=== PATIENT | female | born 1960 | race Caucasian/White ===

== ENCOUNTER 2022-07-25 21:58 | Inpatient (IN) | payer OTHER ==
[2022-07-25] MEDS ORDERED: METOCLOPRAMIDE HCL INJECTION 10 MG/2 ML VIAL IVPB ONE (22:49)
[2022-07-25 23:38] LABS: URINE APPEARANCE TURBID; URINE BILIRUBIN NEGATIVE (NEGATIVE); URINE COLOR YELLOW; URINE GLUCOSE (UA) NEGATIVE (NEGATIVE); URINE KETONE NEGATIVE (NEGATIVE)
[2022-07-25 23:39] LABS: EPI CELLS 207.3 /uL (0-25.1); HYALINE CASTS 726.29 /uL (0-3.1); PH,URINE 6.5 (5.0-8.0); URINE BACTERIA 34726.9 /uL (0-1359); URINE LEUK ESTERASE 4+ (NEGATIVE); URINE NITRITE NEGATIVE (NEGATIVE); URINE PROTEIN 100 (NEGATIVE); URINE RBC 72.4 /uL (0-23.9); URINE UROBILINOGEN 0.2 mg/dL (0.2-1.0); URINE WBC 9177.6 /uL (0-25.8)
[2022-07-25] MEDS ORDERED: LACTATED RINGERS SOLUTION 1000 ML INFUS.BAG IV ONE (23:47)
[2022-07-25] MEDS ORDERED: VANCOMYCIN 2,000 MG in DEXTROSE 5%-WATER - 250 ML IVPB ONE (23:48)
[2022-07-25] MEDS ORDERED: MEROPENEM 1 GM in DEXTROSE 5%-WATER 100 ML IVPB ONE (23:51)
[2022-07-25] MEDS ORDERED: AZTREONAM 1 GM in DEXTROSE 5%-WATER - 50 ML IVPB ONE (23:52)
[2022-07-26 00:19] LABS: BASO % 0.6 % (0-2.0); HEMATOCRIT 25.8 % (32.4-45.2); HEMOGLOBIN 8.5 GM/dL (10.7-15.3); LYMPH % 13.2 % (8-40); MCHC 32.8 g/dl (32.0-36.0); MEAN CELL VOLUME 100.5 fl (80-96); MEAN PLT VOLUME 7.9 fl (7.5-11.1); MONO % 8.9 % (3.8-10.2); NEUT % 77.3 % (42.8-82.8); PLATELET COUNT 189 10^3/uL (134-434); RBC 2.57 M/mm3 (3.60-5.2); RDW 15.4 % (11.6-15.6)
[2022-07-26 00:24] LABS: INR 1.33 (0.83-1.09); PROTHROMBIN TIME (PATIENT) 15.3 SEC (9.7-13.0)
[2022-07-26 00:26] LABS: ACTIVATED PTT 30.6 SECONDS (25.2-36.5)
[2022-07-26 00:40] LABS: ALBUMIN 1.9 g/dl (3.4-5.0); BLOOD UREA NITROGEN 32.3 mg/dL (7-18); CALCIUM 7.4 mg/dL (8.5-10.1); MAGNESIUM 2.2 mg/dL (1.8-2.4)
[2022-07-26 00:43] LABS: CREATININE 1.1 mg/dL (0.55-1.3)
[2022-07-26 00:44] LABS: BILIRUBIN,TOTAL 0.3 mg/dL (0.2-1); TOT PROT 4.5 g/dl (6.4-8.2)
[2022-07-26 00:48] LABS: N-TERMINAL BNP 6144.1 pg/ml (5-125)
[2022-07-26] MEDS ORDERED: METOCLOPRAMIDE HCL INJECTION 10 MG/2 ML VIAL ONE (01:55)
[2022-07-26] MEDS ORDERED: VANCOMYCIN/WATER 2 GRAMS 2,000 MG/400 ML PIGGYBACK IVPB ONE (02:15)
[2022-07-26] MEDS ORDERED: ACETAMINOPHEN 1000 MG/100 ML BAG IVPB ONE (03:47)
[2022-07-26] MEDS ORDERED: ACETAMINOPHEN INJECTION 100 ML IVPB ONE (03:51)
[2022-07-26] MEDS ORDERED: LACTATED RINGERS SOLUTION 1,000 ML IV SCH (04:15)
[2022-07-26 06:37] LABS: BASO % 0.5 % (0-2.0); HEMATOCRIT 23.7 % (32.4-45.2); HEMOGLOBIN 7.7 GM/dL (10.7-15.3); LYMPH % 4.4 % (8-40); MCHC 32.4 g/dl (32.0-36.0); MEAN CELL VOLUME 98.8 fl (80-96); MEAN PLT VOLUME 7.5 fl (7.5-11.1); NEUT % 86.1 % (42.8-82.8); PLATELET COUNT 158 10^3/uL (134-434); RDW 14.7 % (11.6-15.6); WHITE BLOOD COUNT 4.1 K/mm3 (4.0-10.0)
[2022-07-26 06:56] LABS: CHLORIDE 110 mmol/L (98-107); SODIUM 140 mmol/L (136-145)
[2022-07-26 07:01] LABS: ALBUMIN 1.8 g/dl (3.4-5.0); ANION GAP 8 MMOL/L (8-16); BLOOD UREA NITROGEN 30.3 mg/dL (7-18); CO2 21 mmol/L (21-32); GLUCOSE,RANDOM 84 mg/dL (74-106)
[2022-07-26 07:04] LABS: CREATININE 0.8 mg/dL (0.55-1.3); PHOSPHOROUS 3.6 mg/dL (2.5-4.9); SGOT/AST 40 U/L (15-37); SGPT/ALT 34 U/L (13-61)
[2022-07-26 07:07] LABS: ALK PHOS 72 U/L (45-117); BILIRUBIN,TOTAL 0.3 mg/dL (0.2-1); TOT PROT 4.2 g/dl (6.4-8.2)
[2022-07-26 07:19] LABS: CALCIUM 6.9 mg/dL (8.5-10.1)
[2022-07-26] MEDS ORDERED: LEVOTHYROXINE NA 50 MCG TABLET (FP) ONE (09:51)
[2022-07-26] MEDS: POLYETHYLENE GLYCOL (HEALTHYLAX) 3350 17 GM PACKET PO SCH ×3 (09:53→23:57)
[2022-07-26] MEDS: LEVOTHYROXINE NA 50 MCG TABLET (FP) PO SCH (09:57)
[2022-07-26] MEDS ORDERED: ACETAMINOPHEN 1000 MG/100 ML BAG IVPB PRN (10:00)
[2022-07-26] MEDS ORDERED: DIVALPROEX SODIUM 500 MG TABLET E.C. PO SCH (10:00)
[2022-07-26 10:21] LABS: CHOLESTEROL 64 mg/dL (50-200); TRIGLYCERIDES 74 mg/dL (0-150)
[2022-07-26 10:22] LABS: LDL CHOLESTEROL (ONLY SJRH) 32 mg/dL (5-100)
[2022-07-26 10:23] LABS: HDL CHOLESTEROL 24 mg/dL (40-60)
[2022-07-26] MEDS: VALPROATE SODIUM 250 MG/5 ML UNIT DOSE CUP PO SCH ×2 (11:00→23:56)
[2022-07-26] MEDS: APIXABAN 5 MG TABLET PO SCH ×2 (11:00→23:56)
[2022-07-26] MEDS ORDERED: DIVALPROEX SODIUM 500 MG TABLET E.C. ONE (11:02)
[2022-07-26] MEDS ORDERED: APIXABAN 5 MG TABLET ONE (11:02)
[2022-07-26] MEDS ORDERED: POLYETHYLENE GLYCOL (HEALTHYLAX) 3350 17 GM PACKET ONE (15:09)
[2022-07-26] MEDS: FLUTICASONE/SALMETEROL 100 MCG/50 MCG DISKUS IH SCH (15:15)
[2022-07-26] MEDS ORDERED: VANCOMYCIN/WATER 1,250 MG/250 ML BAG IVPB ONE (22:44)
[2022-07-27] MEDS: FLUTICASONE/SALMETEROL 100 MCG/50 MCG DISKUS IH SCH ×3 (00:06→21:49)
[2022-07-27] MEDS: LEVOTHYROXINE NA 50 MCG TABLET (FP) PO SCH (06:44)
[2022-07-27] MEDS: POLYETHYLENE GLYCOL (HEALTHYLAX) 3350 17 GM PACKET PO SCH ×3 (06:44→21:49)
[2022-07-27 09:43] LABS: HEMATOCRIT 25.5 % (32.4-45.2); HEMOGLOBIN 8.3 GM/dL (10.7-15.3); MCH 32.3 pg (25.7-33.7); MCHC 32.6 g/dl (32.0-36.0); MEAN CELL VOLUME 99.3 fl (80-96); MEAN PLT VOLUME 8.1 fl (7.5-11.1); PLATELET COUNT 143 10^3/uL (134-434); RBC 2.57 M/mm3 (3.60-5.2); RDW 14.7 % (11.6-15.6); WHITE BLOOD COUNT 2.1 K/mm3 (4.0-10.0)
[2022-07-27] MEDS ORDERED: FLU VACC QS2022-23(6MOS UP)/PF 60 MCG/0.5 ML SYRINGE IM ONE (10:00)
[2022-07-27 10:01] LABS: ALBUMIN 1.9 g/dl (3.4-5.0)
[2022-07-27 10:02] LABS: BLOOD UREA NITROGEN 24.2 mg/dL (7-18)
[2022-07-27 10:04] LABS: CREATININE 0.7 mg/dL (0.55-1.3)
[2022-07-27 10:05] LABS: BILIRUBIN,TOTAL 0.2 mg/dL (0.2-1)
[2022-07-27 10:06] LABS: CALCIUM 7.7 mg/dL (8.5-10.1); TOT PROT 4.4 g/dl (6.4-8.2)
[2022-07-27] MEDS: VALPROATE SODIUM 250 MG/5 ML UNIT DOSE CUP PO SCH ×2 (10:15→21:48)
[2022-07-27] MEDS: APIXABAN 5 MG TABLET PO SCH ×2 (10:15→21:48)
[2022-07-27] MEDS ORDERED: IRON SUCROSE INJECTION 200 MG in SODIUM CHLORIDE 90 ML IVPB ONE ×2 (11:19→12:00)
[2022-07-27] MEDS: ACETAMINOPHEN 1000 MG/100 ML BAG IVPB PRN ×2 (11:52→18:08)
[2022-07-27] MEDS ORDERED: MEROPENEM 1 GM in DEXTROSE 5%-WATER 100 ML IVPB SCH (14:00)
[2022-07-27] MEDS ORDERED: POTASSIUM CHLORIDE 10 MEQ in DEXTROSE 5%-0.45% SALINE 995 ML IV SCH (16:30)
[2022-07-27] MEDS ORDERED: D5-1/2NS+10 MEQ KCL - 10 MEQ/1,000 ML INFUS.BAG IV SCH (16:45)
[2022-07-28 06:22] LABS: HEMATOCRIT 22.9 % (32.4-45.2); HEMOGLOBIN 7.3 GM/dL (10.7-15.3); MCH 31.7 pg (25.7-33.7); MCHC 31.9 g/dl (32.0-36.0); MEAN CELL VOLUME 99.4 fl (80-96); MEAN PLT VOLUME 8.3 fl (7.5-11.1); PLATELET COUNT 140 10^3/uL (134-434); RDW 14.6 % (11.6-15.6)
[2022-07-28 06:29] LABS: WHITE BLOOD COUNT 1.7 K/mm3 (4.0-10.0)
[2022-07-28 06:41] LABS: ALBUMIN 1.7 g/dl (3.4-5.0); CALCIUM 7.2 mg/dL (8.5-10.1)
[2022-07-28 06:44] LABS: CREATININE 0.6 mg/dL (0.55-1.3)
[2022-07-28 06:46] LABS: BILIRUBIN,TOTAL 0.2 mg/dL (0.2-1)
[2022-07-28] MEDS: LEVOTHYROXINE NA 50 MCG TABLET (FP) PO SCH (07:00)
[2022-07-28] MEDS: VANCOMYCIN/WATER 1250 MG 1,250 MG/250 ML BAG IVPB SCH ×2 (07:00→17:18)
[2022-07-28] MEDS: POLYETHYLENE GLYCOL (HEALTHYLAX) 3350 17 GM PACKET PO SCH ×3 (07:26→21:16)
[2022-07-28] MEDS: DEXTROSE 5%-WATER - 1,000 ML IV SCH (09:59)
[2022-07-28] MEDS: VALPROATE SODIUM 250 MG/5 ML UNIT DOSE CUP PO SCH ×2 (10:50→21:16)
[2022-07-28] MEDS: FLUTICASONE/SALMETEROL 100 MCG/50 MCG DISKUS IH SCH ×2 (10:55→21:17)
[2022-07-28] MEDS: FUROSEMIDE 20 MG TABLET (FP) PO SCH (14:00)
[2022-07-28] MEDS ORDERED: PORTA CATH FLUSH 10 ML IVPUSH PRN (14:11)
[2022-07-28] MEDS ORDERED: guaiFENesin/D-M SUGAR-FREE/ACLHOL-FREE 5 ML UNIT DOSE PO PRN (14:32)
[2022-07-28] MEDS ORDERED: FUROSEMIDE 40 MG/4 ML INJECTABLE VIAL IVPUSH ONE (17:05)
[2022-07-28] MEDS: NYSTATIN 100,000 UNIT/GM TOPICAL CREAM 15 GM TUBE TP SCH (21:16)
[2022-07-29] MEDS: VANCOMYCIN/WATER 1250 MG 1,250 MG/250 ML BAG IVPB SCH ×2 (05:47→17:19)
[2022-07-29] MEDS: POLYETHYLENE GLYCOL (HEALTHYLAX) 3350 17 GM PACKET PO SCH ×3 (05:47→22:33)
[2022-07-29] MEDS: LEVOTHYROXINE NA 50 MCG TABLET (FP) PO SCH (06:41)
[2022-07-29 09:28] LABS: HEMATOCRIT 23.8 % (32.4-45.2); HEMOGLOBIN 7.8 GM/dL (10.7-15.3); MCH 32.4 pg (25.7-33.7); MCHC 32.6 g/dl (32.0-36.0); MEAN CELL VOLUME 99.3 fl (80-96); MEAN PLT VOLUME 7.7 fl (7.5-11.1); PLATELET COUNT 162 10^3/uL (134-434); RDW 14.6 % (11.6-15.6); WHITE BLOOD COUNT 2.7 K/mm3 (4.0-10.0)
[2022-07-29 10:00] LABS: CREATININE 0.6 mg/dL (0.55-1.3)
[2022-07-29 10:02] LABS: BILIRUBIN,TOTAL 0.2 mg/dL (0.2-1); TOT PROT 4.5 g/dl (6.4-8.2)
[2022-07-29] MEDS: VALPROATE SODIUM 250 MG/5 ML UNIT DOSE CUP PO SCH ×2 (11:03→22:33)
[2022-07-29] MEDS: APIXABAN 5 MG TABLET PO SCH ×2 (11:03→22:33)
[2022-07-29] MEDS: FLUTICASONE/SALMETEROL 100 MCG/50 MCG DISKUS IH SCH ×2 (11:04→22:34)
[2022-07-29] MEDS: NYSTATIN 100,000 UNIT/GM TOPICAL CREAM 15 GM TUBE TP SCH ×2 (11:04→22:40)
[2022-07-29] MEDS: DEXTROSE 5%-WATER - 1,000 ML IV SCH ×2 (11:04→15:30)
[2022-07-29] MEDS: FUROSEMIDE 20 MG TABLET (FP) PO SCH (11:04)
[2022-07-29] MEDS ORDERED: AMMONIUM LACTATE 12% LOTION 225 GM BOTTLE TP PRN (11:13)
[2022-07-29] MEDS: DIVALPROEX SODIUM 500 MG TABLET E.C. PO SCH (12:00)
[2022-07-29] MEDS ORDERED: NYSTATIN POWDER 100,000 UNITS/GM - 15 GM TOPICAL POWDER TP SCH (15:00)
[2022-07-29] MEDS: FUROSEMIDE 40 MG/4 ML INJECTABLE VIAL IVPUSH SCH (15:28)
[2022-07-30] MEDS: DEXTROSE 5%-WATER - 1,000 ML IV SCH ×4 (05:52→22:34)
[2022-07-30] MEDS: POLYETHYLENE GLYCOL (HEALTHYLAX) 3350 17 GM PACKET PO SCH ×3 (05:52→22:36)
[2022-07-30] MEDS: VANCOMYCIN/WATER 1250 MG 1,250 MG/250 ML BAG IVPB SCH (05:53)
[2022-07-30] MEDS: LEVOTHYROXINE NA 50 MCG TABLET (FP) PO SCH (06:35)
[2022-07-30 09:29] LABS: BASO % 0.5 % (0-2.0); EOS % 5.9 % (0-4.5); HEMATOCRIT 25.1 % (32.4-45.2); HEMOGLOBIN 8.2 GM/dL (10.7-15.3); LYMPH % 30.4 % (8-40); MCH 32.2 pg (25.7-33.7); MCHC 32.7 g/dl (32.0-36.0); MEAN CELL VOLUME 98.6 fl (80-96); MEAN PLT VOLUME 8.3 fl (7.5-11.1); MONO % 12.4 % (3.8-10.2); NEUT % 50.8 % (42.8-82.8); PLATELET COUNT 191 10^3/uL (134-434); RBC 2.55 M/mm3 (3.60-5.2); RDW 14.7 % (11.6-15.6); WHITE BLOOD COUNT 3.3 K/mm3 (4.0-10.0)
[2022-07-30 09:50] LABS: CALCIUM 8.1 mg/dL (8.5-10.1)
[2022-07-30 09:51] LABS: BLOOD UREA NITROGEN 17.2 mg/dL (7-18)
[2022-07-30 09:54] LABS: CREATININE 0.7 mg/dL (0.55-1.3)
[2022-07-30] MEDS: VALPROATE SODIUM 250 MG/5 ML UNIT DOSE CUP PO SCH (10:14)
[2022-07-30] MEDS: APIXABAN 5 MG TABLET PO SCH ×2 (10:14→22:36)
[2022-07-30] MEDS: FUROSEMIDE 40 MG/4 ML INJECTABLE VIAL IVPUSH SCH (10:15)
[2022-07-30] MEDS: NYSTATIN 100,000 UNIT/GM TOPICAL CREAM 15 GM TUBE TP SCH ×2 (10:19→22:37)
[2022-07-30] MEDS: NYSTATIN POWDER 100,000 UNITS/GM - 15 GM TOPICAL POWDER TP SCH (10:19)
[2022-07-30] MEDS: FLUTICASONE/SALMETEROL 100 MCG/50 MCG DISKUS IH SCH ×2 (10:20→22:37)
[2022-07-30] MEDS ORDERED: SODIUM ZIRCONIUM CYCLOSILICATE (LOKELMA) 5 GM PACKET PO SCH (13:15)
[2022-07-30] MEDS ORDERED: IRON SUCROSE INJECTION 200 MG in SODIUM CHLORIDE 90 ML IVPB ONE (13:15)
[2022-07-30 14:52] VITALS: BMI 32.8
[2022-07-30] MEDS: VANCOMYCIN/WATER FOR INJ (PEG) 1,000 MG/200 ML BAG IVPB SCH (18:04)
[2022-07-30] MEDS: AMINO ACIDS/PROTEIN HYDROLYS 30 ML LIQUID.PKT PO SCH (18:05)
[2022-07-30] MEDS ORDERED: PRAMIPEXOLE DIHYDROCHLORIDE 0.25 MG TABLET PO SCH (22:00)
[2022-07-30] MEDS: DIVALPROEX NA *ER* EXTEND REL 500 MG TABLET.SA (FP) PO SCH (22:36)
[2022-07-31] MEDS ORDERED: PROMETHAZINE HCL 25 MG/1 ML VIAL IVPB ONE (02:05)
[2022-07-31] MEDS: VANCOMYCIN/WATER FOR INJ (PEG) 1,000 MG/200 ML BAG IVPB SCH ×2 (03:21→15:56)
[2022-07-31] MEDS: POLYETHYLENE GLYCOL (HEALTHYLAX) 3350 17 GM PACKET PO SCH ×2 (05:11→14:43)
[2022-07-31] MEDS: LEVOTHYROXINE NA 50 MCG TABLET (FP) PO SCH (06:52)
[2022-07-31] MEDS ORDERED: FERROUS SO4 325 MG TABLET (FP) PO SCH (08:00)
[2022-07-31] MEDS ORDERED: MULTIVIT-MINERALS ORAL LIQUID PO SCH (10:00)
[2022-07-31] MEDS: AMINO ACIDS/PROTEIN HYDROLYS 30 ML LIQUID.PKT PO SCH ×2 (10:26→17:19)
[2022-07-31] MEDS: DIVALPROEX NA *ER* EXTEND REL 500 MG TABLET.SA (FP) PO SCH (10:26)
[2022-07-31] MEDS: APIXABAN 5 MG TABLET PO SCH (10:28)
[2022-07-31] MEDS: FUROSEMIDE 40 MG/4 ML INJECTABLE VIAL IVPUSH SCH (10:28)
[2022-07-31] MEDS: DEXTROSE 5%-WATER - 1,000 ML IV SCH ×2 (10:30→14:34)
[2022-07-31] MEDS: FLUTICASONE/SALMETEROL 100 MCG/50 MCG DISKUS IH SCH (10:32)
[2022-07-31] MEDS: NYSTATIN 100,000 UNIT/GM TOPICAL CREAM 15 GM TUBE TP SCH (10:32)
[2022-07-31] MEDS: NYSTATIN POWDER 100,000 UNITS/GM - 15 GM TOPICAL POWDER TP SCH (10:32)
[2022-07-31 20:39] VITALS: BP 110/65; PULSE 79; RESP 18; TEMP 98.1
[2022-08-01] MEDS ORDERED: FUROSEMIDE 40 MG TABLET (FP) PO SCH (10:00)
== END 2022-07-31 19:15 | DRG 314 ==
LOC: JER 21:58 → JERBED 07-26 03:09 → J7W 07-26 21:13
PROVIDERS: ADMIT Internal Medicine; ATTEND Family Medicine
DX: T82.7XXA Infection and inflammatory reaction due to other cardiac and vascular devices, implants and grafts, initial encounter (principal); A41.89 Other specified sepsis; G93.41 Metabolic encephalopathy; G93.7 Reye's syndrome; N39.0 Urinary tract infection, site not specified; E87.0 Hyperosmolality and hypernatremia; K56.609 Unspecified intestinal obstruction, unspecified as to partial versus complete obstruction; I69.351 Hemiplegia and hemiparesis following cerebral infarction affecting right dominant side; D61.818 Other pancytopenia; E46 Unspecified protein-calorie malnutrition; J98.11 Atelectasis; I50.32 Chronic diastolic (congestive) heart failure; E78.5 Hyperlipidemia, unspecified; I11.0 Hypertensive heart disease with heart failure; G25.81 Restless legs syndrome; J44.9 Chronic obstructive pulmonary disease, unspecified; K21.9 Gastro-esophageal reflux disease without esophagitis; D64.9 Anemia, unspecified; K58.9 Irritable bowel syndrome, unspecified; D50.9 Iron deficiency anemia, unspecified; E66.9 Obesity, unspecified; Z68.32 Body mass index [BMI] 32.0-32.9, adult; E16.2 Hypoglycemia, unspecified; N28.1 Cyst of kidney, acquired; K44.9 Diaphragmatic hernia without obstruction or gangrene; R50.81 Fever presenting with conditions classified elsewhere; B96.1 Klebsiella pneumoniae [K. pneumoniae] as the cause of diseases classified elsewhere; G40.909 Epilepsy, unspecified, not intractable, without status epilepticus; E87.5 Hyperkalemia; L85.3 Xerosis cutis; L84 Corns and callosities; D72.829 Elevated white blood cell count, unspecified; I25.10 Atherosclerotic heart disease of native coronary artery without angina pectoris; Z88.0 Allergy status to penicillin; R04.0 Epistaxis; G43.909 Migraine, unspecified, not intractable, without status migrainosus; Z85.42 Personal history of malignant neoplasm of other parts of uterus; Z85.43 Personal history of malignant neoplasm of ovary; Z86.718 Personal history of other venous thrombosis and embolism; Z86.711 Personal history of pulmonary embolism
CPT/HCPCS: 0241U-QW; 36415; 70450-TC; 71045-TC-FY; 71250-TC; 74176-TC; 76775-TC; 80048; 80053; 80061; 80164; 81003; 82272; 82550; 82607; 82746; 82962; 83540; 83550; 83605; 83735; 83880; 84100; 84443; 84484; 85025; 85027; 85610; 85730; 86850; 86900; 86901; 87040; 87086; 87186; 93005; 93010; 93306-TC; 93970-TC; 93971; 97116-GP; 97161-GP; 99285-25; C9803-CS; G0480; J1756; U0003; U0005

== ENCOUNTER 2022-09-05 17:17 | Inpatient (IN) | payer OTHER ==
[2022-09-05 17:54] VITALS: BMI 27.1
[2022-09-05 18:52] LABS: VENOUS BASE EXCESS 0.2 mmol/L (-2-2); VENOUS O2 SATURATION 42.1 % (70-80); VENOUS PCO2 54.3 mmHg (38-52); VENOUS PH 7.315 (7.310-7.410)
[2022-09-05 18:57] LABS: BASO % 0.8 % (0-2.0); EOS % 2.6 % (0-4.5); HEMATOCRIT 32.4 % (32.4-45.2); HEMOGLOBIN 10.4 GM/dL (10.7-15.3); LYMPH % 32.9 % (8-40); MCH 32.2 pg (25.7-33.7); MCHC 32.3 g/dl (32.0-36.0); MEAN CELL VOLUME 99.8 fl (80-96); MEAN PLT VOLUME 8.7 fl (7.5-11.1); MONO % 11.6 % (3.8-10.2); NEUT % 52.1 % (42.8-82.8); PLATELET COUNT 106 10^3/uL (134-434); RBC 3.24 M/mm3 (3.60-5.2); RDW 14.9 % (11.6-15.6); WHITE BLOOD COUNT 4.2 K/mm3 (4.0-10.0)
[2022-09-05 19:17] LABS: EPI CELLS 1 /uL (0-25.1); HYALINE CASTS 1 /uL (0-3.1); PH,URINE 6.5 (5.0-8.0); URINE APPEARANCE CLOUDY; URINE BACTERIA 1152 /uL (0-1359); URINE BILIRUBIN NEGATIVE (NEGATIVE); URINE COLOR YELLOW; URINE GLUCOSE (UA) NEGATIVE (NEGATIVE); URINE KETONE NEGATIVE (NEGATIVE); URINE LEUK ESTERASE 3+ (NEGATIVE); URINE NITRITE NEGATIVE (NEGATIVE); URINE PROTEIN TRACE (NEGATIVE); URINE RBC 127 /uL (0-23.9); URINE UROBILINOGEN 0.2 mg/dL (0.2-1.0); URINE WBC 1906 /uL (0-25.8)
[2022-09-05 19:30] LABS: CHLORIDE 111 mmol/L (98-107); SODIUM 142 mmol/L (136-145)
[2022-09-05 19:31] LABS: INR 1.24 (0.83-1.09); PROTHROMBIN TIME (PATIENT) 14.3 SEC (9.7-13.0)
[2022-09-05 19:33] LABS: ACTIVATED PTT 30.9 SECONDS (25.2-36.5); ALBUMIN 2.7 g/dl (3.4-5.0); ANION GAP 4 MMOL/L (8-16); CALCIUM 8.2 mg/dL (8.5-10.1); CO2 27 mmol/L (21-32); GLUCOSE,RANDOM 81 mg/dL (74-106)
[2022-09-05 19:36] LABS: SGOT/AST 10 U/L (15-37); SGPT/ALT 11 U/L (13-61)
[2022-09-05 19:38] LABS: BILIRUBIN,TOTAL 0.1 mg/dL (0.2-1); TOT PROT 5.6 g/dl (6.4-8.2)
[2022-09-05 19:39] LABS: ALK PHOS 72 U/L (45-117)
[2022-09-05] MEDS ORDERED: VALPROATE SODIUM 500 MG/5 ML VIAL IVPB ONE (20:28)
[2022-09-05] MEDS ORDERED: VALPROATE SODIUM 500 MG/5 ML VIAL ONE (20:35)
[2022-09-05 20:52] LABS: EPI CELLS 35 /uL (0-25.1); HYALINE CASTS 1 /uL (0-3.1); URINE APPEARANCE CLEAR; URINE BACTERIA 63 /uL (0-1359); URINE BILIRUBIN NEGATIVE (NEGATIVE); URINE COLOR RED; URINE GLUCOSE (UA) NEGATIVE (NEGATIVE); URINE KETONE NEGATIVE (NEGATIVE); URINE LEUK ESTERASE 2+ (NEGATIVE); URINE NITRITE NEGATIVE (NEGATIVE); URINE PROTEIN 3+ (NEGATIVE); URINE RBC 2177 /uL (0-23.9); URINE UROBILINOGEN 0.2 mg/dL (0.2-1.0); URINE WBC 402 /uL (0-25.8)
[2022-09-06] MEDS ORDERED: LEVOTHYROXINE NA 50 MCG TABLET (FP) ONE (06:46)
[2022-09-06] MEDS: LEVOTHYROXINE NA 50 MCG TABLET (FP) PO SCH (06:46)
[2022-09-06 09:23] LABS: BASO % 0.7 % (0-2.0); EOS % 4.2 % (0-4.5); HEMATOCRIT 32.5 % (32.4-45.2); HEMOGLOBIN 10.6 GM/dL (10.7-15.3); LYMPH % 31.4 % (8-40); MCH 32.4 pg (25.7-33.7); MCHC 32.6 g/dl (32.0-36.0); MEAN CELL VOLUME 99.6 fl (80-96); MONO % 14.2 % (3.8-10.2); NEUT % 49.5 % (42.8-82.8); PLATELET COUNT 93 10^3/uL (134-434); RBC 3.26 M/mm3 (3.60-5.2); RDW 14.5 % (11.6-15.6); WHITE BLOOD COUNT 3.6 K/mm3 (4.0-10.0)
[2022-09-06 09:36] LABS: ALBUMIN 2.5 g/dl (3.4-5.0); BILIRUBIN,TOTAL 0.2 mg/dL (0.2-1); BLOOD UREA NITROGEN 29.3 mg/dL (7-18); CALCIUM 8.5 mg/dL (8.5-10.1); CREATININE 0.8 mg/dL (0.55-1.3); TOT PROT 5.3 g/dl (6.4-8.2)
[2022-09-06] MEDS ORDERED: GABAPENTIN 100 MG CAPSULE PO SCH (10:00)
[2022-09-06] MEDS ORDERED: VALPROATE SODIUM 250 MG/5 ML UNIT DOSE CUP PO SCH (10:00)
[2022-09-06] MEDS ORDERED: APIXABAN 5 MG TABLET ONE (10:25)
[2022-09-06] MEDS: FLUTICASONE/SALMETEROL 100 MCG/50 MCG DISKUS IH SCH (13:31)
[2022-09-06] MEDS: APIXABAN 5 MG TABLET PO SCH (13:32)
[2022-09-06] MEDS: DIVALPROEX SODIUM 500 MG TABLET E.C. PO SCH (14:48)
[2022-09-07] MEDS ORDERED: APIXABAN 5 MG TABLET ONE ×2 (00:59→10:29)
[2022-09-07] MEDS: APIXABAN 5 MG TABLET PO SCH ×2 (01:23→10:36)
[2022-09-07] MEDS: FLUTICASONE/SALMETEROL 100 MCG/50 MCG DISKUS IH SCH ×2 (01:23→10:35)
[2022-09-07 08:47] LABS: BASO % 0.8 % (0-2.0); EOS % 2.3 % (0-4.5); HEMATOCRIT 32.5 % (32.4-45.2); HEMOGLOBIN 10.6 GM/dL (10.7-15.3); LYMPH % 27.1 % (8-40); MCH 32.6 pg (25.7-33.7); MCHC 32.7 g/dl (32.0-36.0); MEAN CELL VOLUME 99.6 fl (80-96); MEAN PLT VOLUME 8.6 fl (7.5-11.1); MONO % 12.1 % (3.8-10.2); NEUT % 57.7 % (42.8-82.8); PLATELET COUNT 96 10^3/uL (134-434); RBC 3.26 M/mm3 (3.60-5.2); RDW 14.6 % (11.6-15.6)
[2022-09-07 09:06] VITALS: TEMP 97.9
[2022-09-07 09:24] LABS: ALBUMIN 2.6 g/dl (3.4-5.0); BLOOD UREA NITROGEN 25.4 mg/dL (7-18); CALCIUM 8.5 mg/dL (8.5-10.1); MAGNESIUM 1.9 mg/dL (1.8-2.4)
[2022-09-07 09:27] LABS: CREATININE 0.9 mg/dL (0.55-1.3); PHOSPHOROUS 2.8 mg/dL (2.5-4.9)
[2022-09-07 09:29] LABS: BILIRUBIN,TOTAL 0.2 mg/dL (0.2-1); TOT PROT 5.5 g/dl (6.4-8.2)
[2022-09-07] MEDS ORDERED: PORTA CATH FLUSH 10 ML IVPUSH PRN (09:51)
[2022-09-07] MEDS ORDERED: DICYCLOMINE HCL 20 MG TABLET PO SCH (10:00)
[2022-09-07] MEDS ORDERED: metoPROLOL SUCCINATE 25 MG TAB.SR.24H (FP) PO SCH (10:00)
[2022-09-07] MEDS ORDERED: POLYETHYLENE GLYCOL (HEALTHYLAX) 3350 17 GM PACKET PO SCH (10:00)
[2022-09-07] MEDS ORDERED: VALPROATE SODIUM 250 MG/5 ML UNIT DOSE CUP PO SCH (10:00)
[2022-09-07] MEDS ORDERED: FUROSEMIDE 40 MG TABLET (FP) PO SCH (10:00)
[2022-09-07] MEDS ORDERED: NYSTATIN 100,000 UNIT/GM TOPICAL CREAM 15 GM TUBE TP SCH (10:00)
[2022-09-07] MEDS ORDERED: SODIUM ZIRCONIUM CYCLOSILICATE (LOKELMA) 5 GM PACKET PO SCH (10:00)
[2022-09-07] MEDS ORDERED: DIVALPROEX SODIUM 500 MG TABLET E.C. ONE (10:29)
[2022-09-07] MEDS ORDERED: LEVOTHYROXINE NA 88 MCG TABLET (FP) ONE (10:29)
[2022-09-07] MEDS: LEVOTHYROXINE NA 50 MCG TABLET (FP) PO SCH (10:35)
[2022-09-07] MEDS: DIVALPROEX SODIUM 500 MG TABLET E.C. PO SCH (10:36)
[2022-09-07] MEDS ORDERED: DICYCLOMINE HCL 10 MG CAPSULE PO SCH (12:00)
[2022-09-07] MEDS ORDERED: AMINO ACIDS/PROTEIN HYDROLYS 30 ML LIQUID.PKT PO SCH (17:30)
[2022-09-07 19:53] VITALS: BP 137/85; PULSE 74; RESP 16
[2022-09-07] MEDS ORDERED: ATORVASTATIN CA 40 MG TABLET (FP) PO SCH (22:00)
[2022-09-08] MEDS ORDERED: FERROUS SO4 325 MG TABLET (FP) PO SCH (08:00)
== END 2022-09-07 20:20 | DRG 101 ==
LOC: JER 17:17 → JERBED 20:43
PROVIDERS: ADMIT Family Medicine; ATTEND Family Medicine
PROC: 0T2BX0Z Change Drainage Device in Bladder, External Approach (ICD-10-PCS; principal; 2022-09-05)
DX: G40.909 Epilepsy, unspecified, not intractable, without status epilepticus (principal); I69.351 Hemiplegia and hemiparesis following cerebral infarction affecting right dominant side; N39.0 Urinary tract infection, site not specified; E78.5 Hyperlipidemia, unspecified; G25.81 Restless legs syndrome; J44.9 Chronic obstructive pulmonary disease, unspecified; K21.9 Gastro-esophageal reflux disease without esophagitis; T83.098A Other mechanical complication of other urinary catheter, initial encounter; E03.9 Hypothyroidism, unspecified; I25.10 Atherosclerotic heart disease of native coronary artery without angina pectoris; D50.9 Iron deficiency anemia, unspecified; I11.0 Hypertensive heart disease with heart failure; I50.9 Heart failure, unspecified; K58.9 Irritable bowel syndrome, unspecified; Z96.651 Presence of right artificial knee joint; B96.1 Klebsiella pneumoniae [K. pneumoniae] as the cause of diseases classified elsewhere; N28.1 Cyst of kidney, acquired; Z86.711 Personal history of pulmonary embolism; Z86.718 Personal history of other venous thrombosis and embolism; Z99.81 Dependence on supplemental oxygen; Y84.8 Other medical procedures as the cause of abnormal reaction of the patient, or of later complication, without mention of misadventure at the time of the procedure
CPT/HCPCS: 0241U-QW; 36415; 71045-TC-FY; 74176-TC; 80053; 80164; 81003; 82553; 82803; 82962; 83605; 83735; 84100; 84484; 85025; 85610; 85730; 86850; 86900; 86901; 87040; 87086; 87186; 93005; 93010; 99283-25; 99285-25

== ENCOUNTER 2022-09-16 15:58 | Inpatient (IN) | payer OTHER ==
[2022-09-16] MEDS ORDERED: VANCOMYCIN 1 GM in D5W (PRE-DOCKED) 1,000 MG/250 ML IVPB ONE (19:32)
[2022-09-16 19:38] LABS: BASO % 0.7 % (0-2.0); EOS % 1.4 % (0-4.5); HEMATOCRIT 35.5 % (32.4-45.2); HEMOGLOBIN 11.5 GM/dL (10.7-15.3); LYMPH % 20.6 % (8-40); MCH 32.2 pg (25.7-33.7); MCHC 32.3 g/dl (32.0-36.0); MEAN CELL VOLUME 99.7 fl (80-96); MEAN PLT VOLUME 8.7 fl (7.5-11.1); MONO % 7.7 % (3.8-10.2); NEUT % 69.6 % (42.8-82.8); PLATELET COUNT 131 10^3/uL (134-434); RBC 3.56 M/mm3 (3.60-5.2); RDW 14.6 % (11.6-15.6); WHITE BLOOD COUNT 5.3 K/mm3 (4.0-10.0)
[2022-09-16] MEDS ORDERED: LACTATED RINGERS SOLUTION 1000 ML INFUS.BAG IV ONE (19:44)
[2022-09-16 20:09] LABS: CALCIUM 8.8 mg/dL (8.5-10.1)
[2022-09-16 20:10] LABS: BLOOD UREA NITROGEN 39.9 mg/dL (7-18)
[2022-09-16 20:14] LABS: BILIRUBIN,TOTAL 0.2 mg/dL (0.2-1)
[2022-09-16 20:15] LABS: TOT PROT 6.5 g/dl (6.4-8.2)
[2022-09-16 20:33] LABS: ALBUMIN 3.2 g/dl (3.4-5.0)
[2022-09-16] MEDS ORDERED: VANCOMYCIN/WATER FOR INJ (PEG) 1,000 MG/200 ML BAG IVPB ONE (21:38)
[2022-09-16 22:39] LABS: INR 1.08 (0.83-1.09); PROTHROMBIN TIME (PATIENT) 12.4 SEC (9.7-13.0)
[2022-09-16 22:42] LABS: ACTIVATED PTT 29.7 SECONDS (25.2-36.5)
[2022-09-17] MEDS ORDERED: ACETAMINOPHEN 1000 MG/100 ML BAG IVPB ONE (05:13)
[2022-09-17 07:53] LABS: BASO % 0.8 % (0-2.0); EOS % 1.8 % (0-4.5); HEMATOCRIT 30.4 % (32.4-45.2); HEMOGLOBIN 9.9 GM/dL (10.7-15.3); LYMPH % 22.7 % (8-40); MCH 32.3 pg (25.7-33.7); MCHC 32.4 g/dl (32.0-36.0); MEAN CELL VOLUME 99.7 fl (80-96); MONO % 12.4 % (3.8-10.2); NEUT % 62.3 % (42.8-82.8); PLATELET COUNT 94 10^3/uL (134-434); RBC 3.05 M/mm3 (3.60-5.2); RDW 14.5 % (11.6-15.6); WHITE BLOOD COUNT 4.1 K/mm3 (4.0-10.0)
[2022-09-17] MEDS ORDERED: VALPROATE SODIUM 250 MG/5 ML UNIT DOSE CUP PO SCH (10:00)
[2022-09-17] MEDS ORDERED: DICYCLOMINE HCL 20 MG TABLET PO SCH (10:00)
[2022-09-17] MEDS ORDERED: DIVALPROEX SODIUM 500 MG TABLET E.C. ONE (10:22)
[2022-09-17] MEDS ORDERED: DICYCLOMINE HCL 10 MG CAPSULE ONE (10:22)
[2022-09-17] MEDS ORDERED: APIXABAN 5 MG TABLET ONE (10:22)
[2022-09-17] MEDS ORDERED: SODIUM ZIRCONIUM CYCLOSILICATE (LOKELMA) 5 GM PACKET ONE (10:22)
[2022-09-17] MEDS ORDERED: FUROSEMIDE 40 MG/4 ML INJECTABLE VIAL ONE (10:23)
[2022-09-17] MEDS ORDERED: GABAPENTIN 100 MG CAPSULE ONE (10:23)
[2022-09-17] MEDS ORDERED: metoPROLOL SUCCINATE 25 MG TAB.SR.24H (FP) PO ONE (10:23)
[2022-09-17] MEDS: DIVALPROEX SODIUM 500 MG TABLET E.C. PO SCH ×3 (10:37→23:45)
[2022-09-17] MEDS: SODIUM ZIRCONIUM CYCLOSILICATE (LOKELMA) 5 GM PACKET PO SCH (10:37)
[2022-09-17] MEDS: POLYETHYLENE GLYCOL (HEALTHYLAX) 3350 17 GM PACKET PO SCH ×2 (10:37→21:20)
[2022-09-17] MEDS: metoPROLOL SUCCINATE 25 MG TAB.SR.24H (FP) PO SCH (10:37)
[2022-09-17] MEDS: FUROSEMIDE 40 MG/4 ML INJECTABLE VIAL IVPUSH SCH (10:37)
[2022-09-17] MEDS: GABAPENTIN 100 MG CAPSULE PO SCH ×2 (10:37→21:17)
[2022-09-17] MEDS: APIXABAN 5 MG TABLET PO SCH ×2 (10:37→21:18)
[2022-09-17] MEDS ORDERED: DICYCLOMINE HCL 10 MG CAPSULE PO SCH (11:00)
[2022-09-17 11:24] LABS: BLOOD UREA NITROGEN 36.8 mg/dL (7-18); CALCIUM 8.2 mg/dL (8.5-10.1); CREATININE 0.8 mg/dL (0.55-1.3); MAGNESIUM 1.9 mg/dL (1.8-2.4); PHOSPHOROUS 3.2 mg/dL (2.5-4.9)
[2022-09-17] MEDS ORDERED: ACETAMINOPHEN 500 MG TABLET (FP) ONE (14:32)
[2022-09-17] MEDS: ACETAMINOPHEN 500 MG TABLET (FP) PO PRN ×2 (15:00→21:18)
[2022-09-17 15:22] LABS: N-TERMINAL BNP 1823.4 pg/ml (5-125)
[2022-09-17] MEDS ORDERED: VANCOMYCIN/WATER FOR INJ (PEG) 1,000 MG/200 ML BAG IVPB ONE (16:11)
[2022-09-17] MEDS: VANCOMYCIN/WATER FOR INJ (PEG) 1,000 MG/200 ML BAG IVPB SCH (16:36)
[2022-09-17] MEDS ORDERED: DEXTROSE 50%-WATER - 25 GM/50 ML VIAL IVPUSH PRN (17:18)
[2022-09-17] MEDS: DICYCLOMINE HCL 10 MG CAPSULE PO SCH (21:17)
[2022-09-17] MEDS: ATORVASTATIN CA 40 MG TABLET (FP) PO SCH (21:18)
[2022-09-17] MEDS: PRAMIPEXOLE DIHYDROCHLORIDE 0.125 MG TABLET PO SCH (23:45)
[2022-09-18] MEDS: VANCOMYCIN/WATER FOR INJ (PEG) 1,000 MG/200 ML BAG IVPB SCH ×2 (02:22→15:19)
[2022-09-18] MEDS: LEVOTHYROXINE NA 50 MCG TABLET (FP) PO SCH (06:22)
[2022-09-18] MEDS: SODIUM ZIRCONIUM CYCLOSILICATE (LOKELMA) 5 GM PACKET PO SCH (10:35)
[2022-09-18] MEDS: PRAMIPEXOLE DIHYDROCHLORIDE 0.125 MG TABLET PO SCH ×2 (10:35→21:41)
[2022-09-18] MEDS: DICYCLOMINE HCL 10 MG CAPSULE PO SCH ×2 (10:36→21:42)
[2022-09-18] MEDS: APIXABAN 5 MG TABLET PO SCH ×2 (10:36→21:41)
[2022-09-18] MEDS: GABAPENTIN 100 MG CAPSULE PO SCH ×2 (10:37→21:41)
[2022-09-18] MEDS: metoPROLOL SUCCINATE 25 MG TAB.SR.24H (FP) PO SCH (10:37)
[2022-09-18] MEDS: FUROSEMIDE 40 MG/4 ML INJECTABLE VIAL IVPUSH SCH ×2 (10:38)
[2022-09-18] MEDS: DIVALPROEX SODIUM 500 MG TABLET E.C. PO SCH ×2 (10:38→22:43)
[2022-09-18] MEDS: POLYETHYLENE GLYCOL (HEALTHYLAX) 3350 17 GM PACKET PO SCH ×2 (10:39→21:42)
[2022-09-18 10:42] LABS: EOS % 2.8 % (0-4.5); HEMOGLOBIN 10.8 GM/dL (10.7-15.3); LYMPH % 33.4 % (8-40); MCH 32.5 pg (25.7-33.7); MCHC 32.7 g/dl (32.0-36.0); MEAN CELL VOLUME 99.4 fl (80-96); MEAN PLT VOLUME 8.8 fl (7.5-11.1); MONO % 8.9 % (3.8-10.2); NEUT % 53.9 % (42.8-82.8); PLATELET COUNT 107 10^3/uL (134-434); RBC 3.32 M/mm3 (3.60-5.2); RDW 14.2 % (11.6-15.6); WHITE BLOOD COUNT 2.9 K/mm3 (4.0-10.0)
[2022-09-18 11:26] LABS: ALBUMIN 2.4 g/dl (3.4-5.0); BLOOD UREA NITROGEN 33.9 mg/dL (7-18); CALCIUM 8.1 mg/dL (8.5-10.1)
[2022-09-18 11:37] LABS: BILIRUBIN,TOTAL 0.3 mg/dL (0.2-1); CREATININE 0.9 mg/dL (0.55-1.3); TOT PROT 5.4 g/dl (6.4-8.2)
[2022-09-18] MEDS: AMINO ACIDS/PROTEIN HYDROLYS 30 ML LIQUID.PKT PO SCH (17:33)
[2022-09-18] MEDS: ATORVASTATIN CA 40 MG TABLET (FP) PO SCH (21:40)
[2022-09-18] MEDS: ACETAMINOPHEN 500 MG TABLET (FP) PO PRN (21:41)
[2022-09-19] MEDS: VANCOMYCIN/WATER FOR INJ (PEG) 1,000 MG/200 ML BAG IVPB SCH (02:34)
[2022-09-19] MEDS: LEVOTHYROXINE NA 50 MCG TABLET (FP) PO SCH (06:38)
[2022-09-19] MEDS: DICYCLOMINE HCL 10 MG CAPSULE PO SCH ×2 (09:14→21:42)
[2022-09-19] MEDS: metoPROLOL SUCCINATE 25 MG TAB.SR.24H (FP) PO SCH (09:14)
[2022-09-19] MEDS: GABAPENTIN 100 MG CAPSULE PO SCH ×2 (09:14→21:41)
[2022-09-19] MEDS: APIXABAN 5 MG TABLET PO SCH ×2 (09:14→21:40)
[2022-09-19] MEDS: AMINO ACIDS/PROTEIN HYDROLYS 30 ML LIQUID.PKT PO SCH ×2 (09:14→17:32)
[2022-09-19] MEDS: SODIUM ZIRCONIUM CYCLOSILICATE (LOKELMA) 5 GM PACKET PO SCH (09:15)
[2022-09-19] MEDS: POLYETHYLENE GLYCOL (HEALTHYLAX) 3350 17 GM PACKET PO SCH ×2 (09:15→21:40)
[2022-09-19] MEDS: FUROSEMIDE 40 MG/4 ML INJECTABLE VIAL IVPUSH SCH (09:15)
[2022-09-19] MEDS: PRAMIPEXOLE DIHYDROCHLORIDE 0.125 MG TABLET PO SCH ×2 (09:15→21:42)
[2022-09-19] MEDS: DIVALPROEX SODIUM 500 MG TABLET E.C. PO SCH ×2 (09:16→21:41)
[2022-09-19 10:35] LABS: CALCIUM 8.2 mg/dL (8.5-10.1)
[2022-09-19 10:39] LABS: CREATININE 0.7 mg/dL (0.55-1.3)
[2022-09-19 16:30] VITALS: BMI 26.6
[2022-09-19] MEDS: ASCORBIC ACID 250 MG TABLET (FP) PO SCH (17:32)
[2022-09-19] MEDS: MULTIVITAMINS THER W-MINERALS COMBO TABLET (FP) PO SCH (17:32)
[2022-09-19] MEDS: ACETAMINOPHEN 500 MG TABLET (FP) PO PRN (21:40)
[2022-09-19] MEDS: ATORVASTATIN CA 40 MG TABLET (FP) PO SCH (21:41)
[2022-09-19] MEDS: PRAMIPEXOLE DIHYDROCHLORIDE 0.25 MG TABLET PO SCH (21:41)
[2022-09-20] MEDS: LEVOTHYROXINE NA 50 MCG TABLET (FP) PO SCH (06:40)
[2022-09-20] MEDS: AMINO ACIDS/PROTEIN HYDROLYS 30 ML LIQUID.PKT PO SCH ×2 (08:14→17:17)
[2022-09-20] MEDS: GABAPENTIN 100 MG CAPSULE PO SCH ×2 (09:15→21:31)
[2022-09-20] MEDS: metoPROLOL SUCCINATE 25 MG TAB.SR.24H (FP) PO SCH (09:16)
[2022-09-20] MEDS: APIXABAN 5 MG TABLET PO SCH ×2 (09:16→21:31)
[2022-09-20] MEDS: DICYCLOMINE HCL 10 MG CAPSULE PO SCH ×2 (09:16→21:31)
[2022-09-20] MEDS: PRAMIPEXOLE DIHYDROCHLORIDE 0.125 MG TABLET PO SCH (09:16)
[2022-09-20] MEDS: POLYETHYLENE GLYCOL (HEALTHYLAX) 3350 17 GM PACKET PO SCH ×2 (09:17→21:31)
[2022-09-20] MEDS: SODIUM ZIRCONIUM CYCLOSILICATE (LOKELMA) 5 GM PACKET PO SCH (09:17)
[2022-09-20] MEDS: DIVALPROEX SODIUM 500 MG TABLET E.C. PO SCH ×2 (09:17→21:31)
[2022-09-20] MEDS: FUROSEMIDE 40 MG/4 ML INJECTABLE VIAL IVPUSH SCH (09:26)
[2022-09-20] MEDS: PRAMIPEXOLE DIHYDROCHLORIDE 0.25 MG TABLET PO SCH ×2 (09:29→21:31)
[2022-09-20] MEDS: FUROSEMIDE 40 MG TABLET (FP) PO SCH (10:10)
[2022-09-20 14:08] VITALS: RESP 18
[2022-09-20] MEDS: MULTIVITAMINS THER W-MINERALS COMBO TABLET (FP) PO SCH (17:52)
[2022-09-20] MEDS: ASCORBIC ACID 250 MG TABLET (FP) PO SCH (17:52)
[2022-09-20] MEDS: ATORVASTATIN CA 40 MG TABLET (FP) PO SCH (21:31)
[2022-09-21] MEDS: LEVOTHYROXINE NA 50 MCG TABLET (FP) PO SCH (06:55)
[2022-09-21] MEDS: AMINO ACIDS/PROTEIN HYDROLYS 30 ML LIQUID.PKT PO SCH (07:59)
[2022-09-21] MEDS: metoPROLOL SUCCINATE 25 MG TAB.SR.24H (FP) PO SCH (09:44)
[2022-09-21] MEDS: APIXABAN 5 MG TABLET PO SCH (09:44)
[2022-09-21] MEDS: FUROSEMIDE 40 MG TABLET (FP) PO SCH (09:44)
[2022-09-21] MEDS: GABAPENTIN 100 MG CAPSULE PO SCH (09:44)
[2022-09-21] MEDS: DICYCLOMINE HCL 10 MG CAPSULE PO SCH (09:44)
[2022-09-21] MEDS: POLYETHYLENE GLYCOL (HEALTHYLAX) 3350 17 GM PACKET PO SCH (09:45)
[2022-09-21] MEDS: DIVALPROEX SODIUM 500 MG TABLET E.C. PO SCH (09:45)
[2022-09-21] MEDS: SODIUM ZIRCONIUM CYCLOSILICATE (LOKELMA) 5 GM PACKET PO SCH (09:45)
[2022-09-21] MEDS: PRAMIPEXOLE DIHYDROCHLORIDE 0.25 MG TABLET PO SCH (09:46)
[2022-09-21 16:00] VITALS: BP 106/69; PULSE 74; TEMP 97.7
== END 2022-09-21 16:20 | DRG 602 ==
LOC: JER 15:58 → JERBED 20:28 → J6S 09-17 19:16
PROVIDERS: ADMIT Internal Medicine; ATTEND Family Medicine
DX: L03.115 Cellulitis of right lower limb (principal); E43 Unspecified severe protein-calorie malnutrition; E87.0 Hyperosmolality and hypernatremia; I69.351 Hemiplegia and hemiparesis following cerebral infarction affecting right dominant side; L03.116 Cellulitis of left lower limb; E87.5 Hyperkalemia; J44.9 Chronic obstructive pulmonary disease, unspecified; E78.5 Hyperlipidemia, unspecified; I25.10 Atherosclerotic heart disease of native coronary artery without angina pectoris; E03.9 Hypothyroidism, unspecified; K21.9 Gastro-esophageal reflux disease without esophagitis; G25.81 Restless legs syndrome; G43.909 Migraine, unspecified, not intractable, without status migrainosus; I25.2 Old myocardial infarction; I50.9 Heart failure, unspecified; I87.2 Venous insufficiency (chronic) (peripheral); G40.909 Epilepsy, unspecified, not intractable, without status epilepticus; Z86.718 Personal history of other venous thrombosis and embolism; Z86.711 Personal history of pulmonary embolism; Z96.651 Presence of right artificial knee joint; Z68.26 Body mass index [BMI] 26.0-26.9, adult
CPT/HCPCS: 0241U-QW; 36415; 70450-TC; 70551-TC; 71045-TC-FY; 73562-TC-RT-FY; 80048; 80053; 80164; 82525; 82607; 82728; 82962; 83540; 83550; 83735; 83880; 84100; 84443; 84484; 85025; 85610; 85730; 87040; 93005; 93010; 93970-TC; 97116-GP; 99285-25

== ENCOUNTER 2022-11-18 19:11 | Observation (INO) | payer OTHER ==
[2022-11-18 20:06] VITALS: BMI 27.8
[2022-11-18 21:09] LABS: BASO % 0.4 % (0-2.0); EOS % 1.5 % (0-4.5); HEMATOCRIT 32.5 % (32.4-45.2); HEMOGLOBIN 10.7 GM/dL (10.7-15.3); LYMPH % 35.9 % (8-40); MCH 33.4 pg (25.7-33.7); MCHC 32.8 g/dl (32.0-36.0); MEAN PLT VOLUME 8.1 fl (7.5-11.1); MONO % 13.5 % (3.8-10.2); NEUT % 48.7 % (42.8-82.8); PLATELET COUNT 106 10^3/uL (134-434); RBC 3.19 M/mm3 (3.60-5.2); RDW 14.5 % (11.6-15.6); WHITE BLOOD COUNT 3.5 K/mm3 (4.0-10.0)
[2022-11-18 21:17] LABS: INR 1.22 (0.83-1.09); PROTHROMBIN TIME (PATIENT) 14.1 SEC (9.7-13.0)
[2022-11-18 21:19] LABS: ACTIVATED PTT 32.8 SECONDS (25.2-36.5)
[2022-11-18 21:23] LABS: ALBUMIN 2.5 g/dl (3.4-5.0); CALCIUM 7.8 mg/dL (8.5-10.1)
[2022-11-18 21:24] LABS: BLOOD UREA NITROGEN 32.2 mg/dL (7-18)
[2022-11-18 21:26] LABS: BILIRUBIN,TOTAL 0.3 mg/dL (0.2-1); CREATININE 0.7 mg/dL (0.55-1.3)
[2022-11-18 21:27] LABS: TOT PROT 5.4 g/dl (6.4-8.2)
[2022-11-18 21:29] LABS: N-TERMINAL BNP 1392.2 pg/ml (5-125)
[2022-11-19] MEDS ORDERED: DEXTROSE 5%-0.45% SALINE 1,000 ML IV SCH (00:45)
[2022-11-19 01:27] LABS: EPI CELLS 3 /uL (0-25.1); HYALINE CASTS 0 /uL (0-3.1); PH,URINE 6.5 (5.0-8.0); URINE APPEARANCE CLEAR; URINE BACTERIA 235 /uL (0-1359); URINE BILIRUBIN NEGATIVE (NEGATIVE); URINE COLOR YELLOW; URINE GLUCOSE (UA) NEGATIVE (NEGATIVE); URINE KETONE NEGATIVE (NEGATIVE); URINE LEUK ESTERASE 2+ (NEGATIVE); URINE NITRITE NEGATIVE (NEGATIVE); URINE PROTEIN 2+ (NEGATIVE); URINE RBC 48 /uL (0-23.9); URINE UROBILINOGEN 0.2 mg/dL (0.2-1.0); URINE WBC 259 /uL (0-25.8)
[2022-11-19] MEDS ORDERED: ACETAMINOPHEN 500 MG TABLET (FP) PO PRN (07:50)
[2022-11-19 08:34] LABS: BASO % 0.6 % (0-2.0); HEMATOCRIT 31.2 % (32.4-45.2); HEMOGLOBIN 10.5 GM/dL (10.7-15.3); LYMPH % 42.1 % (8-40); MCH 34.1 pg (25.7-33.7); MCHC 33.5 g/dl (32.0-36.0); MEAN CELL VOLUME 101.8 fl (80-96); MEAN PLT VOLUME 8.6 fl (7.5-11.1); MONO % 9.7 % (3.8-10.2); NEUT % 45.6 % (42.8-82.8); PLATELET COUNT 103 10^3/uL (134-434); RBC 3.07 M/mm3 (3.60-5.2); RDW 14.2 % (11.6-15.6); WHITE BLOOD COUNT 3.1 K/mm3 (4.0-10.0)
[2022-11-19 08:46] LABS: CHLORIDE 112 mmol/L (98-107); SODIUM 145 mmol/L (136-145)
[2022-11-19 09:00] LABS: CALCIUM 8.3 mg/dL (8.5-10.1); CO2 27 mmol/L (21-32); GLUCOSE,RANDOM 66 mg/dL (74-106); MAGNESIUM 1.8 mg/dL (1.8-2.4)
[2022-11-19 09:02] LABS: CREATININE 0.7 mg/dL (0.55-1.3)
[2022-11-19 09:18] LABS: ANION GAP 6 MMOL/L (8-16)
[2022-11-19] MEDS: AMINO ACIDS/PROTEIN HYDROLYS 30 ML LIQUID.PKT PO SCH ×2 (09:20→16:32)
[2022-11-19] MEDS: APIXABAN 5 MG TABLET PO SCH ×2 (09:20→22:11)
[2022-11-19] MEDS: FLUTICASONE/SALMETEROL 100 MCG/50 MCG DISKUS IH SCH ×2 (09:20→22:11)
[2022-11-19] MEDS: GABAPENTIN 100 MG CAPSULE PO SCH ×2 (09:20→22:12)
[2022-11-19] MEDS: FUROSEMIDE 40 MG TABLET (FP) PO SCH (09:20)
[2022-11-19] MEDS: POLYETHYLENE GLYCOL (HEALTHYLAX) 3350 17 GM PACKET PO SCH ×2 (09:21→22:12)
[2022-11-19] MEDS: DIVALPROEX SODIUM 500 MG TABLET E.C. PO SCH ×2 (09:21→22:47)
[2022-11-19] MEDS ORDERED: metoPROLOL SUCCINATE 25 MG TAB.SR.24H (FP) PO SCH ×2 (10:00→22:37)
[2022-11-19] MEDS ORDERED: SODIUM ZIRCONIUM CYCLOSILICATE (LOKELMA) 5 GM PACKET PO SCH (10:00)
[2022-11-19] MEDS ORDERED: POTASSIUM CHLORIDE TABS 20 MEQ TABLET.ER (FP) PO ONE (10:07)
[2022-11-19] MEDS: POTASSIUM CHLORIDE TABS 20 MEQ TABLET.ER (FP) PO SCH (16:32)
[2022-11-19] MEDS ORDERED: ATORVASTATIN CA 40 MG TABLET (FP) PO SCH (22:00)
[2022-11-19] MEDS ORDERED: DIVALPROEX SODIUM 500 MG TABLET E.C. PO SCH (22:37)
[2022-11-19] MEDS: PRAMIPEXOLE DIHYDROCHLORIDE 0.25 MG TABLET PO SCH (22:47)
[2022-11-20 03:35] VITALS: RESP 20
[2022-11-20] MEDS ORDERED: LEVOTHYROXINE NA 50 MCG TABLET (FP) PO SCH (07:00)
[2022-11-20 08:20] LABS: BASO % 0.4 % (0-2.0); EOS % 1.4 % (0-4.5); HEMATOCRIT 28.9 % (32.4-45.2); HEMOGLOBIN 9.8 GM/dL (10.7-15.3); LYMPH % 38.7 % (8-40); MCH 34.3 pg (25.7-33.7); MEAN CELL VOLUME 101.1 fl (80-96); MEAN PLT VOLUME 8.7 fl (7.5-11.1); MONO % 12.5 % (3.8-10.2); PLATELET COUNT 99 10^3/uL (134-434); RBC 2.86 M/mm3 (3.60-5.2); RDW 14.3 % (11.6-15.6); WHITE BLOOD COUNT 3.6 K/mm3 (4.0-10.0)
[2022-11-20 08:33] LABS: CALCIUM 7.7 mg/dL (8.5-10.1)
[2022-11-20 08:34] LABS: ALBUMIN 2.2 g/dl (3.4-5.0); BLOOD UREA NITROGEN 34.7 mg/dL (7-18)
[2022-11-20 08:38] LABS: CREATININE 0.8 mg/dL (0.55-1.3)
[2022-11-20 08:39] LABS: BILIRUBIN,TOTAL 0.2 mg/dL (0.2-1); TOT PROT 4.8 g/dl (6.4-8.2)
[2022-11-20] MEDS: AMINO ACIDS/PROTEIN HYDROLYS 30 ML LIQUID.PKT PO SCH (09:05)
[2022-11-20] MEDS: FLUTICASONE/SALMETEROL 100 MCG/50 MCG DISKUS IH SCH (09:05)
[2022-11-20] MEDS: POLYETHYLENE GLYCOL (HEALTHYLAX) 3350 17 GM PACKET PO SCH (09:06)
[2022-11-20] MEDS: FUROSEMIDE 40 MG TABLET (FP) PO SCH (09:06)
[2022-11-20] MEDS: APIXABAN 5 MG TABLET PO SCH (09:06)
[2022-11-20] MEDS: PRAMIPEXOLE DIHYDROCHLORIDE 0.25 MG TABLET PO SCH (09:06)
[2022-11-20] MEDS: GABAPENTIN 100 MG CAPSULE PO SCH (09:07)
[2022-11-20] MEDS: POTASSIUM CHLORIDE TABS 20 MEQ TABLET.ER (FP) PO SCH (09:08)
[2022-11-20 15:11] VITALS: BP 135/57; PULSE 65; TEMP 98.4
[2022-11-20 22:32] LABS: EPI CELLS 7 /uL (0-25.1); HYALINE CASTS 0 /uL (0-3.1); URINE APPEARANCE CLEAR; URINE BACTERIA 4520 /uL (0-1359); URINE BILIRUBIN NEGATIVE (NEGATIVE); URINE COLOR YELLOW; URINE GLUCOSE (UA) NEGATIVE (NEGATIVE); URINE KETONE NEGATIVE (NEGATIVE); URINE LEUK ESTERASE NEGATIVE (NEGATIVE); URINE NITRITE NEGATIVE (NEGATIVE); URINE PROTEIN NEGATIVE (NEGATIVE); URINE RBC 9 /uL (0-23.9); URINE UROBILINOGEN 0.2 mg/dL (0.2-1.0); URINE WBC 12 /uL (0-25.8)
== END 2022-11-20 17:37 ==
LOC: JER 19:11 → JERBED 11-19 00:21 → J4W 11-19 05:16
PROVIDERS: ADMIT Internal Medicine; ATTEND Family Medicine
DX: N39.0 Urinary tract infection, site not specified (principal); I25.10 Atherosclerotic heart disease of native coronary artery without angina pectoris; R56.9 Unspecified convulsions; R82.71 Bacteriuria; I11.9 Hypertensive heart disease without heart failure; E03.9 Hypothyroidism, unspecified; E78.5 Hyperlipidemia, unspecified; J44.9 Chronic obstructive pulmonary disease, unspecified; R55 Syncope and collapse; I48.91 Unspecified atrial fibrillation; Z79.01 Long term (current) use of anticoagulants; D64.9 Anemia, unspecified; Z88.6 Allergy status to analgesic agent; Z88.0 Allergy status to penicillin; Z88.8 Allergy status to other drugs, medicaments and biological substances; W18.39XA Other fall on same level, initial encounter; Y93.89 Activity, other specified; Y92.092 Bedroom in other non-institutional residence as the place of occurrence of the external cause
CPT/HCPCS: 0241U-QW; 36415; 70450-TC; 71045-TC-FY; 72125-TC; 80048; 80053; 80164; 81003; 82607; 83735; 83880; 84443; 84484; 85025; 85610; 85730; 86850; 86900; 86901; 87086; 87186; 93005; 93010; 93880-TC; 96365; 97162-GP; 99285-25; G0378

== ENCOUNTER 2023-05-09 17:31 | Emergency (ER) | payer OTHER ==
[2023-05-09 17:57] VITALS: BP 122/78; PULSE 69; RESP 18; TEMP 98.6; BMI 28.2
== END 2023-05-09 21:22 | disposition home or self-care (01) ==
LOC: JER 17:31
DX: S00.03XA Contusion of scalp, initial encounter (principal); W01.198A Fall on same level from slipping, tripping and stumbling with subsequent striking against other object, initial encounter
CPT/HCPCS: 70450-TC; 72125-TC; 99284-25

== ENCOUNTER 2023-06-08 17:22 | Inpatient (IN) | payer OTHER ==
[2023-06-08] MEDS: ACETAMINOPHEN 1000 MG/100 ML BAG IVPB ONE ×2 (21:00→21:55)
[2023-06-08] MEDS ORDERED: ACETAMINOPHEN INJECTION 100 ML IVPB ONE (21:05)
[2023-06-08] MEDS ORDERED: ACETAMINOPHEN 500 MG TABLET (FP) PO ONE (21:43)
[2023-06-08] MEDS ORDERED: ACETAMINOPHEN 325 MG TABLET (FP) ONE (21:44)
[2023-06-08] MEDS ORDERED: ACETAMINOPHEN 650 MG/20.3 ML ORAL SOLUTION (CUPS) PO ONE (21:47)
[2023-06-08 22:46] LABS: BASO % 0.3 % (0-2.0); EOS % 0.6 % (0-4.5); HEMATOCRIT 30.1 % (32.4-45.2); HEMOGLOBIN 9.9 GM/dL (10.7-15.3); LYMPH % 22.4 % (8-40); MCH 35.1 pg (25.7-33.7); MCHC 32.9 g/dl (32.0-36.0); MEAN CELL VOLUME 106.7 fl (80-96); MEAN PLT VOLUME 8.8 fl (7.5-11.1); MONO % 17.2 % (3.8-10.2); NEUT % 59.5 % (42.8-82.8); PLATELET COUNT 80 10^3/uL (134-434); RBC 2.82 M/mm3 (3.60-5.2); RDW 13.5 % (11.6-15.6); WHITE BLOOD COUNT 5.8 K/mm3 (4.0-10.0)
[2023-06-08 22:52] LABS: INR 1.05 (0.83-1.09); PROTHROMBIN TIME (PATIENT) 12.2 SEC (9.7-13.0)
[2023-06-08 22:55] LABS: ACTIVATED PTT 29.7 SECONDS (25.2-36.5)
[2023-06-08 23:13] LABS: POTASSIUM 4.9 mmol/L (3.5-5.1)
[2023-06-08 23:15] LABS: CALCIUM 8.3 mg/dL (8.5-10.1)
[2023-06-08 23:16] LABS: ALBUMIN 2.7 g/dl (3.4-5.0); BLOOD UREA NITROGEN 31.2 mg/dL (7-18)
[2023-06-08 23:17] LABS: ANISOCYTOSIS 1+; MACROCYTOSIS 0; OVALOCYTE 2+
[2023-06-08 23:21] LABS: BILIRUBIN,TOTAL 0.4 mg/dL (0.2-1); TOT PROT 5.6 g/dl (6.4-8.2)
[2023-06-09] MEDS ORDERED: morphine CARPU-JECT 4 MG/1 ML DISP.SYRIN IVPUSH ONE (01:18)
[2023-06-09] MEDS ORDERED: ACETAMINOPHEN 1000 MG/100 ML BAG IVPB ONE (01:21)
[2023-06-09] MEDS ORDERED: ACETAMINOPHEN INJECTION 100 ML IVPB ONE (01:27)
[2023-06-09 03:31] LABS: EPI CELLS 19 /uL (0-25.1); HYALINE CASTS 0 /uL (0-3.1); PH,URINE 5.5 (5.0-8.0); URINE APPEARANCE CLEAR; URINE BACTERIA 10 /uL (0-1359); URINE BILIRUBIN NEGATIVE (NEGATIVE); URINE COLOR YELLOW; URINE GLUCOSE (UA) NEGATIVE (NEGATIVE); URINE KETONE TRACE (NEGATIVE); URINE LEUK ESTERASE TRACE (NEGATIVE); URINE NITRITE NEGATIVE (NEGATIVE); URINE PROTEIN TRACE (NEGATIVE); URINE RBC 15 /uL (0-23.9); URINE UROBILINOGEN 0.2 mg/dL (0.2-1.0); URINE WBC 24 /uL (0-25.8)
[2023-06-09] MEDS ORDERED: NITROGLYCERIN SUBLINGUAL 1/150 0.4 MG TAB SL PRN (04:26)
[2023-06-09] MEDS ORDERED: NYSTATIN POWDER 100,000 UNITS/GM - 15 GM TOPICAL POWDER TP PRN (04:26)
[2023-06-09] MEDS: SODIUM CHLORIDE 1,000 ML IV SCH (06:19)
[2023-06-09 07:32] LABS: BASO % 0.4 % (0-2.0); EOS % 0.5 % (0-4.5); HEMATOCRIT 24.3 % (32.4-45.2); LYMPH % 29.2 % (8-40); MCH 35.3 pg (25.7-33.7); MCHC 33.1 g/dl (32.0-36.0); MEAN CELL VOLUME 106.8 fl (80-96); MEAN PLT VOLUME 9.6 fl (7.5-11.1); MONO % 17.1 % (3.8-10.2); NEUT % 52.8 % (42.8-82.8); PLATELET COUNT 52 10^3/uL (134-434); RBC 2.27 M/mm3 (3.60-5.2); RDW 13.6 % (11.6-15.6); WHITE BLOOD COUNT 3.9 K/mm3 (4.0-10.0)
[2023-06-09 07:48] LABS: POTASSIUM 4.7 mmol/L (3.5-5.1)
[2023-06-09] MEDS ORDERED: ONDANSETRON *ODT* 4 MG TABLET ONE (07:48)
[2023-06-09 07:50] LABS: CALCIUM 7.5 mg/dL (8.5-10.1)
[2023-06-09 07:51] LABS: ALBUMIN 2.3 g/dl (3.4-5.0)
[2023-06-09 07:54] LABS: CREATININE 0.9 mg/dL (0.55-1.3)
[2023-06-09 07:55] LABS: BILIRUBIN,TOTAL 0.3 mg/dL (0.2-1); TOT PROT 4.6 g/dl (6.4-8.2)
[2023-06-09] MEDS: LEVOTHYROXINE NA 50 MCG TABLET (FP) PO SCH (07:57)
[2023-06-09] MEDS: ONDANSETRON 4 MG TABLET PO SCH ×3 (07:57→17:45)
[2023-06-09] MEDS: SENNOSIDES 8.6MG TABLET (FP) PO SCH ×2 (07:57→17:45)
[2023-06-09 08:55] LABS: ACTIVATED PTT 29.9 SECONDS (25.2-36.5)
[2023-06-09 09:03] LABS: INR 1.11 (0.83-1.09); PROTHROMBIN TIME (PATIENT) 12.9 SEC (9.7-13.0)
[2023-06-09] MEDS ORDERED: MELATONIN 1 MG TABLET PO SCH (10:00)
[2023-06-09] MEDS: FLUTICASONE/SALMETEROL (WIXELA) 100 MCG/50 MCG DISKUS IH SCH ×2 (11:02→22:14)
[2023-06-09] MEDS: AMMONIUM LACTATE 12% LOTION 225 GM BOTTLE TP SCH (11:03)
[2023-06-09] MEDS: FERROUS SO4 325 MG TABLET (FP) PO SCH (11:03)
[2023-06-09] MEDS: DIVALPROEX SODIUM 500 MG TABLET E.C. PO SCH ×2 (11:03→22:15)
[2023-06-09] MEDS: PRAMIPEXOLE DIHYDROCHLORIDE 0.25 MG TABLET PO SCH ×2 (11:04→22:15)
[2023-06-09] MEDS: NYSTATIN 100,000 UNIT/GM TOPICAL CREAM 15 GM TUBE TP SCH ×2 (11:04→22:16)
[2023-06-09] MEDS: FUROSEMIDE 20 MG TABLET (FP) PO SCH (11:04)
[2023-06-09] MEDS: GABAPENTIN 100 MG CAPSULE PO SCH ×2 (11:05→22:16)
[2023-06-09] MEDS: FAMOTIDINE 20 MG TABLET PO SCH (11:05)
[2023-06-09] MEDS: CALCIUM 500MG/VIT-D 200 UNITS COMBO TABLET (FP) PO SCH (11:05)
[2023-06-09] MEDS: AMINO ACIDS/PROTEIN HYDROLYS 30 ML LIQUID.PKT PO SCH ×2 (11:06→22:16)
[2023-06-09] MEDS: CHLORHEXIDINE GLUCONATE 0.12% 15ML CUP MM SCH ×2 (11:06→22:16)
[2023-06-09] MEDS: MULTIVITAMINS (DAILY MVI) TABLET (FP) PO SCH (11:06)
[2023-06-09] MEDS ORDERED: ACETAMINOPHEN 325 MG TABLET (FP) ONE (21:57)
[2023-06-09] MEDS: ATORVASTATIN CA 40 MG TABLET (FP) PO SCH (22:15)
[2023-06-09] MEDS: MELATONIN 1 MG TABLET PO SCH (22:15)
[2023-06-10] MEDS: SODIUM CHLORIDE 1,000 ML IV SCH (01:11)
[2023-06-10] MEDS: LEVOTHYROXINE NA 50 MCG TABLET (FP) PO SCH (06:14)
[2023-06-10] MEDS: ACETAMINOPHEN 500 MG TABLET (FP) PO PRN ×3 (06:14→22:57)
[2023-06-10] MEDS: SENNOSIDES 8.6MG TABLET (FP) PO SCH ×2 (06:14→16:36)
[2023-06-10] MEDS: ONDANSETRON 4 MG TABLET PO SCH ×3 (08:23→16:37)
[2023-06-10 11:15] LABS: BASO % 0.4 % (0-2.0); HEMATOCRIT 24.4 % (32.4-45.2); HEMOGLOBIN 8.2 GM/dL (10.7-15.3); MCH 36.1 pg (25.7-33.7); MCHC 33.4 g/dl (32.0-36.0); MEAN CELL VOLUME 107.8 fl (80-96); MEAN PLT VOLUME 9.2 fl (7.5-11.1); MONO % 12.8 % (3.8-10.2); NEUT % 58.8 % (42.8-82.8); PLATELET COUNT 54 10^3/uL (134-434); RBC 2.26 M/mm3 (3.60-5.2); RDW 13.8 % (11.6-15.6); WHITE BLOOD COUNT 4.6 K/mm3 (4.0-10.0)
[2023-06-10] MEDS: FERROUS SO4 325 MG TABLET (FP) PO SCH (11:28)
[2023-06-10] MEDS: FUROSEMIDE 20 MG TABLET (FP) PO SCH (11:28)
[2023-06-10] MEDS: GABAPENTIN 100 MG CAPSULE PO SCH ×2 (11:29→22:45)
[2023-06-10] MEDS: AMINO ACIDS/PROTEIN HYDROLYS 30 ML LIQUID.PKT PO SCH ×2 (11:29→22:46)
[2023-06-10] MEDS: CALCIUM 500MG/VIT-D 200 UNITS COMBO TABLET (FP) PO SCH (11:29)
[2023-06-10] MEDS: FAMOTIDINE 20 MG TABLET PO SCH (11:29)
[2023-06-10] MEDS: PRAMIPEXOLE DIHYDROCHLORIDE 0.25 MG TABLET PO SCH ×2 (11:29→22:45)
[2023-06-10] MEDS: MULTIVITAMINS (DAILY MVI) TABLET (FP) PO SCH (11:30)
[2023-06-10 11:34] LABS: POTASSIUM 4.4 mmol/L (3.5-5.1)
[2023-06-10 11:51] LABS: ALBUMIN 2.5 g/dl (3.4-5.0); BLOOD UREA NITROGEN 33.6 mg/dL (7-18); CALCIUM 7.9 mg/dL (8.5-10.1)
[2023-06-10 11:54] LABS: CREATININE 1.1 mg/dL (0.55-1.3)
[2023-06-10 11:55] LABS: BILIRUBIN,TOTAL 0.4 mg/dL (0.2-1)
[2023-06-10] MEDS: DIVALPROEX SODIUM 500 MG TABLET E.C. PO SCH ×2 (12:29→22:45)
[2023-06-10] MEDS: NYSTATIN 100,000 UNIT/GM TOPICAL CREAM 15 GM TUBE TP SCH ×2 (12:32→22:48)
[2023-06-10] MEDS: FLUTICASONE/SALMETEROL (WIXELA) 100 MCG/50 MCG DISKUS IH SCH ×2 (13:32→22:47)
[2023-06-10] MEDS: CHLORHEXIDINE GLUCONATE 0.12% 15ML CUP MM SCH ×2 (13:32→22:46)
[2023-06-10] MEDS: AMMONIUM LACTATE 12% LOTION 225 GM BOTTLE TP SCH (13:33)
[2023-06-10] MEDS: MELATONIN 1 MG TABLET PO SCH (22:45)
[2023-06-10] MEDS: ATORVASTATIN CA 40 MG TABLET (FP) PO SCH (22:45)
[2023-06-11] MEDS: SODIUM CHLORIDE 1,000 ML IV SCH ×2 (04:40→11:44)
[2023-06-11] MEDS: SENNOSIDES 8.6MG TABLET (FP) PO SCH ×2 (06:43→17:37)
[2023-06-11] MEDS: LEVOTHYROXINE NA 50 MCG TABLET (FP) PO SCH (06:44)
[2023-06-11] MEDS: ONDANSETRON 4 MG TABLET PO SCH ×3 (06:44→17:37)
[2023-06-11] MEDS: ACETAMINOPHEN 500 MG TABLET (FP) PO PRN ×2 (06:45→23:02)
[2023-06-11] MEDS: CALCIUM 500MG/VIT-D 200 UNITS COMBO TABLET (FP) PO SCH (10:46)
[2023-06-11] MEDS: MULTIVITAMINS (DAILY MVI) TABLET (FP) PO SCH (10:46)
[2023-06-11] MEDS: APIXABAN 5 MG TABLET PO SCH ×2 (10:46→22:44)
[2023-06-11] MEDS: FUROSEMIDE 20 MG TABLET (FP) PO SCH (10:46)
[2023-06-11] MEDS: DIVALPROEX SODIUM 500 MG TABLET E.C. PO SCH ×2 (10:46→11:44)
[2023-06-11] MEDS: FERROUS SO4 325 MG TABLET (FP) PO SCH (10:46)
[2023-06-11] MEDS: GABAPENTIN 100 MG CAPSULE PO SCH ×2 (10:46→22:43)
[2023-06-11] MEDS: AMINO ACIDS/PROTEIN HYDROLYS 30 ML LIQUID.PKT PO SCH ×2 (10:47→22:43)
[2023-06-11] MEDS: FAMOTIDINE 20 MG TABLET PO SCH (10:47)
[2023-06-11] MEDS: PRAMIPEXOLE DIHYDROCHLORIDE 0.25 MG TABLET PO SCH ×2 (10:47→22:44)
[2023-06-11] MEDS: CHLORHEXIDINE GLUCONATE 0.12% 15ML CUP MM SCH ×2 (10:47→22:09)
[2023-06-11] MEDS: AMMONIUM LACTATE 12% LOTION 225 GM BOTTLE TP SCH (10:48)
[2023-06-11] MEDS: NYSTATIN 100,000 UNIT/GM TOPICAL CREAM 15 GM TUBE TP SCH ×2 (10:48→22:47)
[2023-06-11] MEDS: FLUTICASONE/SALMETEROL (WIXELA) 100 MCG/50 MCG DISKUS IH SCH ×2 (10:48→22:46)
[2023-06-11] MEDS ORDERED: VALPROATE SODIUM 250 MG/5 ML UNIT DOSE CUP PO SCH (11:45)
[2023-06-11 12:58] LABS: BASO % 0.2 % (0-2.0); EOS % 0.9 % (0-4.5); HEMATOCRIT 23.2 % (32.4-45.2); HEMOGLOBIN 7.5 GM/dL (10.7-15.3); LYMPH % 23.8 % (8-40); MCH 34.3 pg (25.7-33.7); MCHC 32.1 g/dl (32.0-36.0); MEAN CELL VOLUME 106.9 fl (80-96); MEAN PLT VOLUME 8.8 fl (7.5-11.1); MONO % 12.5 % (3.8-10.2); NEUT % 62.6 % (42.8-82.8); PLATELET COUNT 61 10^3/uL (134-434); RBC 2.17 M/mm3 (3.60-5.2); RDW 13.7 % (11.6-15.6)
[2023-06-11 17:48] LABS: RETICULOCYTES 3.57 % (0.5-1.5)
[2023-06-11 20:10] LABS: ANISOCYTOSIS 1+; MACROCYTOSIS 2+
[2023-06-11] MEDS: MELATONIN 1 MG TABLET PO SCH (22:43)
[2023-06-11] MEDS: ATORVASTATIN CA 40 MG TABLET (FP) PO SCH (22:44)
[2023-06-12] MEDS: LEVOTHYROXINE NA 50 MCG TABLET (FP) PO SCH (06:18)
[2023-06-12] MEDS: SENNOSIDES 8.6MG TABLET (FP) PO SCH ×2 (06:18→17:47)
[2023-06-12] MEDS: ACETAMINOPHEN 500 MG TABLET (FP) PO PRN ×2 (06:24→15:31)
[2023-06-12] MEDS: ONDANSETRON 4 MG TABLET PO SCH ×4 (08:38→15:38)
[2023-06-12] MEDS: MULTIVITAMINS (DAILY MVI) TABLET (FP) PO SCH (10:04)
[2023-06-12] MEDS: PRAMIPEXOLE DIHYDROCHLORIDE 0.25 MG TABLET PO SCH ×2 (10:04→22:11)
[2023-06-12] MEDS: FAMOTIDINE 20 MG TABLET PO SCH (10:04)
[2023-06-12] MEDS: GABAPENTIN 100 MG CAPSULE PO SCH (10:04)
[2023-06-12] MEDS: CHLORHEXIDINE GLUCONATE 0.12% 15ML CUP MM SCH ×2 (10:04→22:12)
[2023-06-12] MEDS: FERROUS SO4 325 MG TABLET (FP) PO SCH (10:04)
[2023-06-12] MEDS: AMINO ACIDS/PROTEIN HYDROLYS 30 ML LIQUID.PKT PO SCH (10:04)
[2023-06-12] MEDS: CALCIUM 500MG/VIT-D 200 UNITS COMBO TABLET (FP) PO SCH (10:04)
[2023-06-12] MEDS: FUROSEMIDE 20 MG TABLET (FP) PO SCH (10:05)
[2023-06-12 10:16] LABS: HEMATOCRIT 24.3 % (32.4-45.2); HEMOGLOBIN 7.9 GM/dL (10.7-15.3); MCH 34.7 pg (25.7-33.7); MCHC 32.5 g/dl (32.0-36.0); MEAN CELL VOLUME 106.7 fl (80-96); PLATELET COUNT 68 10^3/uL (134-434); RBC 2.27 M/mm3 (3.60-5.2); RDW 13.8 % (11.6-15.6); WHITE BLOOD COUNT 4.1 K/mm3 (4.0-10.0)
[2023-06-12 10:32] LABS: POTASSIUM 4.5 mmol/L (3.5-5.1)
[2023-06-12 10:42] LABS: CALCIUM 7.8 mg/dL (8.5-10.1)
[2023-06-12 10:43] LABS: BLOOD UREA NITROGEN 44.7 mg/dL (7-18)
[2023-06-12 10:46] LABS: CREATININE 1.2 mg/dL (0.55-1.3)
[2023-06-12] MEDS: AMMONIUM LACTATE 12% LOTION 225 GM BOTTLE TP SCH (11:15)
[2023-06-12] MEDS: NYSTATIN 100,000 UNIT/GM TOPICAL CREAM 15 GM TUBE TP SCH ×2 (11:16→22:12)
[2023-06-12] MEDS: FLUTICASONE/SALMETEROL (WIXELA) 100 MCG/50 MCG DISKUS IH SCH ×2 (11:16→22:12)
[2023-06-12] MEDS: SIMETHICONE 80 MG TAB.CHEW (FP) PO SCH ×2 (15:27→17:23)
[2023-06-12] MEDS ORDERED: ONDANSETRON 4 MG/2 ML VIAL IVPUSH PRN ×2 (15:49)
[2023-06-12] MEDS ORDERED: BISACODYL 10 MG SUPP.RECT PR ONE (16:33)
[2023-06-12] MEDS: ACETAMINOPHEN 1000 MG/100 ML BAG IVPB PRN (16:36)
[2023-06-12] MEDS ORDERED: VALPROATE SODIUM 500 MG/5 ML VIAL IVPB SCH (16:45)
[2023-06-12] MEDS ORDERED: PORTA CATH FLUSH 10 ML IVPUSH PRN (17:02)
[2023-06-12 17:10] LABS: BILIRUBIN,DIRECT 0.2 mg/dL (0.0-0.2)
[2023-06-12 17:12] LABS: BILIRUBIN,TOTAL 0.4 mg/dL (0.2-1)
[2023-06-12] MEDS: DEXTROSE 5%-0.45% SALINE 1,000 ML IV SCH (17:12)
[2023-06-12] MEDS: VALPROATE SODIUM IVPB SCH ×2 (18:39→23:25)
[2023-06-12] MEDS: WATER IVPB SCH ×2 (18:39→23:25)
[2023-06-12] MEDS: DEXTROSE 5% IVPB SCH ×2 (18:39→23:25)
[2023-06-12] MEDS: ATORVASTATIN CA 40 MG TABLET (FP) PO SCH (22:11)
[2023-06-13] MEDS: VALPROATE SODIUM IVPB SCH ×4 (06:35→23:56)
[2023-06-13] MEDS: WATER IVPB SCH ×4 (06:35→23:56)
[2023-06-13] MEDS: LEVOTHYROXINE NA 50 MCG TABLET (FP) PO SCH (06:35)
[2023-06-13] MEDS: DEXTROSE 5% IVPB SCH ×4 (06:35→23:56)
[2023-06-13] MEDS: MULTIVITAMINS (DAILY MVI) TABLET (FP) PO SCH (09:03)
[2023-06-13] MEDS: FLUTICASONE/SALMETEROL (WIXELA) 100 MCG/50 MCG DISKUS IH SCH ×2 (09:03→21:43)
[2023-06-13] MEDS: NYSTATIN 100,000 UNIT/GM TOPICAL CREAM 15 GM TUBE TP SCH ×2 (09:03→21:34)
[2023-06-13] MEDS: AMMONIUM LACTATE 12% LOTION 225 GM BOTTLE TP SCH (09:03)
[2023-06-13] MEDS: CHLORHEXIDINE GLUCONATE 0.12% 15ML CUP MM SCH ×2 (09:03→21:34)
[2023-06-13] MEDS: PRAMIPEXOLE DIHYDROCHLORIDE 0.25 MG TABLET PO SCH (09:03)
[2023-06-13 10:22] LABS: HEMATOCRIT 24.2 % (32.4-45.2); MCH 36.2 pg (25.7-33.7); MEAN CELL VOLUME 109.6 fl (80-96); MEAN PLT VOLUME 8.5 fl (7.5-11.1); PLATELET COUNT 87 10^3/uL (134-434); RBC 2.21 M/mm3 (3.60-5.2); RDW 13.5 % (11.6-15.6); WHITE BLOOD COUNT 4.5 K/mm3 (4.0-10.0)
[2023-06-13 10:27] LABS: POTASSIUM 4.5 mmol/L (3.5-5.1)
[2023-06-13 10:40] LABS: CALCIUM 7.9 mg/dL (8.5-10.1)
[2023-06-13 10:41] LABS: BLOOD UREA NITROGEN 43.3 mg/dL (7-18); MAGNESIUM 1.7 mg/dL (1.8-2.4)
[2023-06-13 10:44] LABS: PHOSPHOROUS 3.3 mg/dL (2.5-4.9)
[2023-06-13] MEDS: ACETAMINOPHEN 1000 MG/100 ML BAG IVPB PRN (12:44)
[2023-06-13] MEDS: DEXTROSE 5%-0.45% SALINE 1,000 ML IV SCH (13:35)
[2023-06-13] MEDS ORDERED: PROCHLORPERAZINE INJECTION 10 MG/2 ML VIAL IVPB PRN (16:13)
[2023-06-13] MEDS: ATORVASTATIN CA 40 MG TABLET (FP) PO SCH (21:34)
[2023-06-14] MEDS: LEVOTHYROXINE NA 50 MCG TABLET (FP) PO SCH (06:10)
[2023-06-14] MEDS: WATER IVPB SCH ×2 (06:10→16:21)
[2023-06-14] MEDS: VALPROATE SODIUM IVPB SCH ×2 (06:10→16:21)
[2023-06-14] MEDS: DEXTROSE 5% IVPB SCH ×2 (06:10→16:21)
[2023-06-14] MEDS ORDERED: ONDANSETRON 4 MG/2 ML VIAL IVPUSH ONE (07:45)
[2023-06-14 10:21] LABS: BASO % 0.1 % (0-2.0); EOS % 0.8 % (0-4.5); HEMATOCRIT 23.7 % (32.4-45.2); HEMOGLOBIN 7.9 GM/dL (10.7-15.3); LYMPH % 8.1 % (8-40); MCH 36.1 pg (25.7-33.7); MCHC 33.5 g/dl (32.0-36.0); MEAN CELL VOLUME 107.9 fl (80-96); MEAN PLT VOLUME 8.3 fl (7.5-11.1); MONO % 1.6 % (3.8-10.2); NEUT % 89.4 % (42.8-82.8); PLATELET COUNT 96 10^3/uL (134-434); RDW 13.5 % (11.6-15.6); WHITE BLOOD COUNT 3.6 K/mm3 (4.0-10.0)
[2023-06-14] MEDS: LORazepam 2 MG/ML SDV VIAL IVPUSH ONE ×2 (10:30→11:55)
[2023-06-14 10:39] LABS: POTASSIUM 4.5 mmol/L (3.5-5.1)
[2023-06-14 10:42] LABS: CALCIUM 7.9 mg/dL (8.5-10.1)
[2023-06-14 10:43] LABS: BLOOD UREA NITROGEN 40.2 mg/dL (7-18)
[2023-06-14 10:46] LABS: CREATININE 0.9 mg/dL (0.55-1.3)
[2023-06-14 10:48] LABS: TOT PROT 4.8 g/dl (6.4-8.2)
[2023-06-14 10:51] LABS: BILIRUBIN,TOTAL 2.3 mg/dL (0.2-1)
[2023-06-14] MEDS: MULTIVITAMINS (DAILY MVI) TABLET (FP) PO SCH (11:46)
[2023-06-14] MEDS: APIXABAN 5 MG TABLET PO SCH ×2 (11:46→22:55)
[2023-06-14] MEDS: AMMONIUM LACTATE 12% LOTION 225 GM BOTTLE TP SCH (12:00)
[2023-06-14] MEDS: FLUTICASONE/SALMETEROL (WIXELA) 100 MCG/50 MCG DISKUS IH SCH ×2 (12:00→22:55)
[2023-06-14] MEDS: NYSTATIN 100,000 UNIT/GM TOPICAL CREAM 15 GM TUBE TP SCH ×2 (12:01→22:00)
[2023-06-14 13:44] LABS: BILIRUBIN,DIRECT 1.7 mg/dL (0.0-0.2)
[2023-06-14] MEDS ORDERED: LORazepam 2 MG/ML SDV VIAL IVPUSH ONE ×2 (14:30→14:51)
[2023-06-14] MEDS ORDERED: LACTATED RINGERS SOLUTION 1,000 ML/1,000 ML INFUS.BAG IV STA ×2 (14:38→16:11)
[2023-06-14] MEDS: CHLORHEXIDINE GLUCONATE 0.12% 15ML CUP MM SCH ×2 (14:51→22:57)
[2023-06-14] MEDS: LACTATED RINGERS SOLUTION 1,000 ML/1,000 ML INFUS.BAG IV SCH (18:46)
[2023-06-14] MEDS ORDERED: NITROGLYCERIN SUBLINGUAL 1/150 0.4 MG TAB SL PRN (21:07)
[2023-06-14] MEDS ORDERED: PORTA CATH FLUSH 10 ML IVPUSH PRN (21:07)
[2023-06-14] MEDS ORDERED: PROCHLORPERAZINE INJECTION 10 MG/2 ML VIAL IVPB PRN (21:07)
[2023-06-14] MEDS ORDERED: DIVALPROEX SODIUM 500 MG TABLET E.C. PO SCH ×2 (22:00)
[2023-06-14 22:08] LABS: ARTERIAL BLD GAS O2 SATURATION 99.2 % (95-98); ARTERIAL BLOOD GAS BASE EXCESS 0.4 mmol/L (-2-2); ARTERIAL BLOOD GAS PO2 163.5 mmHg (80-100); ARTERIAL BLOOD GAS pH 7.469 (7.350-7.450)
[2023-06-14 22:13] LABS: ALLENS TEST POSITIVE
[2023-06-14] MEDS: ATORVASTATIN CA 40 MG TABLET (FP) PO SCH (22:56)
[2023-06-14] MEDS: NYSTATIN POWDER 100,000 UNITS/GM - 15 GM TOPICAL POWDER TP PRN (22:58)
[2023-06-15] MEDS: LEVOTHYROXINE NA 50 MCG TABLET (FP) PO SCH (06:28)
[2023-06-15 09:28] LABS: HEMATOCRIT 19.4 % (32.4-45.2); MCH 35.4 pg (25.7-33.7); MCHC 33.3 g/dl (32.0-36.0); MEAN CELL VOLUME 106.2 fl (80-96); MEAN PLT VOLUME 7.7 fl (7.5-11.1); PLATELET COUNT 71 10^3/uL (134-434); RBC 1.82 M/mm3 (3.60-5.2); RDW 13.7 % (11.6-15.6); WHITE BLOOD COUNT 3.5 K/mm3 (4.0-10.0)
[2023-06-15 09:37] LABS: HEMOGLOBIN 6.5 GM/dL (10.7-15.3)
[2023-06-15 09:50] LABS: POTASSIUM 4.4 mmol/L (3.5-5.1)
[2023-06-15] MEDS: FLUTICASONE/SALMETEROL (WIXELA) 100 MCG/50 MCG DISKUS IH SCH ×2 (09:54→22:55)
[2023-06-15] MEDS: NYSTATIN 100,000 UNIT/GM TOPICAL CREAM 15 GM TUBE TP SCH ×2 (09:56→22:55)
[2023-06-15 09:59] LABS: ALBUMIN 1.8 g/dl (3.4-5.0); BLOOD UREA NITROGEN 39.7 mg/dL (7-18); CALCIUM 7.6 mg/dL (8.5-10.1)
[2023-06-15] MEDS ORDERED: VALPROATE SODIUM 500 MG/5 ML VIAL IVPB SCH ×2 (10:00→11:30)
[2023-06-15 10:03] LABS: CREATININE 0.9 mg/dL (0.55-1.3)
[2023-06-15 10:04] LABS: TOT PROT 4.2 g/dl (6.4-8.2)
[2023-06-15] MEDS ORDERED: VALPROATE SODIUM INJECTION 1,000 MG in DEXTROSE 5%-WATER - 100 ML IVPB SCH ×2 (12:00→16:00)
[2023-06-15] MEDS: AMMONIUM LACTATE 12% LOTION 225 GM BOTTLE TP SCH (12:06)
[2023-06-15] MEDS: APIXABAN 5 MG TABLET PO SCH ×2 (12:06→22:54)
[2023-06-15] MEDS: MULTIVITAMINS (DAILY MVI) TABLET (FP) PO SCH (12:07)
[2023-06-15] MEDS: CHLORHEXIDINE GLUCONATE 0.12% 15ML CUP MM SCH ×2 (12:07→22:55)
[2023-06-15] MEDS: AZTREONAM 1 GM in DEXTROSE 5%-WATER - 50 ML IVPB SCH ×2 (12:11→17:10)
[2023-06-15] MEDS: VALPROATE SODIUM INJECTION 1,000 MG in DEXTROSE 5%-WATER - 100 ML IVPB SCH ×4 (12:26→22:23)
[2023-06-15] MEDS: CLINDAMYCIN 600MG PREMIX IVPB 600 MG/50 ML BAG IVPB SCH ×2 (17:07)
[2023-06-15] MEDS: LACTATED RINGERS SOLUTION 1,000 ML/1,000 ML INFUS.BAG IV SCH (20:01)
[2023-06-15] MEDS ORDERED: ACETAMINOPHEN 1000 MG/100 ML BAG IVPB ONE ×2 (21:02)
[2023-06-15] MEDS: ATORVASTATIN CA 40 MG TABLET (FP) PO SCH (22:55)
[2023-06-16] MEDS: AZTREONAM 1 GM in DEXTROSE 5%-WATER - 50 ML IVPB SCH ×3 (02:55→17:26)
[2023-06-16] MEDS: CLINDAMYCIN 600MG PREMIX IVPB 600 MG/50 ML BAG IVPB SCH ×3 (03:33→17:26)
[2023-06-16] MEDS: VALPROATE SODIUM INJECTION 1,000 MG in DEXTROSE 5%-WATER - 100 ML IVPB SCH ×4 (04:04→20:54)
[2023-06-16] MEDS: LACTATED RINGERS SOLUTION 1,000 ML/1,000 ML INFUS.BAG IV SCH ×2 (05:15→20:18)
[2023-06-16] MEDS: LEVOTHYROXINE NA 50 MCG TABLET (FP) PO SCH (06:37)
[2023-06-16 09:04] LABS: BASO % 0.3 % (0-2.0); EOS % 0.9 % (0-4.5); HEMATOCRIT 29.3 % (32.4-45.2); HEMOGLOBIN 9.9 GM/dL (10.7-15.3); MCH 33.2 pg (25.7-33.7); MCHC 33.8 g/dl (32.0-36.0); MEAN CELL VOLUME 98.3 fl (80-96); MEAN PLT VOLUME 7.9 fl (7.5-11.1); NEUT % 71.8 % (42.8-82.8); PLATELET COUNT 100 10^3/uL (134-434); RBC 2.98 M/mm3 (3.60-5.2); RDW 20.8 % (11.6-15.6); WHITE BLOOD COUNT 4.5 K/mm3 (4.0-10.0)
[2023-06-16 09:12] LABS: INR 1.24 (0.83-1.09); PROTHROMBIN TIME (PATIENT) 14.3 SEC (9.7-13.0)
[2023-06-16 09:35] LABS: POTASSIUM 4.6 mmol/L (3.5-5.1)
[2023-06-16 09:40] LABS: ALBUMIN 1.9 g/dl (3.4-5.0); CALCIUM 8.1 mg/dL (8.5-10.1); MAGNESIUM 1.6 mg/dL (1.8-2.4)
[2023-06-16 09:43] LABS: CREATININE 0.8 mg/dL (0.55-1.3); PHOSPHOROUS 3.3 mg/dL (2.5-4.9)
[2023-06-16 09:44] LABS: BILIRUBIN,TOTAL 3.2 mg/dL (0.2-1); TOT PROT 4.4 g/dl (6.4-8.2)
[2023-06-16] MEDS ORDERED: MAGNESIUM SULF 50% (8.12 MEQ/2 ML-1 GM VIAL) IVPB ONE (10:03)
[2023-06-16] MEDS ORDERED: BISACODYL 10 MG SUPP.RECT PR ONE (10:04)
[2023-06-16 11:12] LABS: BILIRUBIN,DIRECT 2.6 mg/dL (0.0-0.2)
[2023-06-16] MEDS: FLUTICASONE/SALMETEROL (WIXELA) 100 MCG/50 MCG DISKUS IH SCH ×2 (12:49→21:49)
[2023-06-16] MEDS: NYSTATIN 100,000 UNIT/GM TOPICAL CREAM 15 GM TUBE TP SCH ×2 (12:49→21:50)
[2023-06-16] MEDS: NYSTATIN POWDER 100,000 UNITS/GM - 15 GM TOPICAL POWDER TP PRN (12:49)
[2023-06-16] MEDS: CHLORHEXIDINE GLUCONATE 0.12% 15ML CUP MM SCH ×2 (12:54→21:50)
[2023-06-16] MEDS: MULTIVITAMINS (DAILY MVI) TABLET (FP) PO SCH (12:54)
[2023-06-16 15:40] VITALS: BMI 31.2
[2023-06-16] MEDS: POLYETHYLENE GLYCOL (HEALTHYLAX) 3350 17 GM PACKET PO SCH ×2 (16:01→21:49)
[2023-06-16] MEDS: AMMONIUM LACTATE 12% LOTION 225 GM BOTTLE TP SCH (16:07)
[2023-06-16 18:08] LABS: FREE KAPPA,SERUM 39.5 mg/L (3.3-19.4)
[2023-06-16] MEDS: PANTOPRAZOLE SODIUM 40 MG VIAL IVPUSH SCH (21:50)
[2023-06-16] MEDS: ATORVASTATIN CA 40 MG TABLET (FP) PO SCH (21:50)
[2023-06-17] MEDS: CLINDAMYCIN 600MG PREMIX IVPB 600 MG/50 ML BAG IVPB SCH ×3 (01:09→18:53)
[2023-06-17] MEDS: AZTREONAM 1 GM in DEXTROSE 5%-WATER - 50 ML IVPB SCH ×3 (01:58→18:02)
[2023-06-17] MEDS: VALPROATE SODIUM INJECTION 1,000 MG in DEXTROSE 5%-WATER - 100 ML IVPB SCH ×4 (02:20→22:35)
[2023-06-17] MEDS: POLYETHYLENE GLYCOL (HEALTHYLAX) 3350 17 GM PACKET PO SCH ×3 (06:00→22:49)
[2023-06-17] MEDS: LEVOTHYROXINE NA 50 MCG TABLET (FP) PO SCH (06:05)
[2023-06-17 07:58] LABS: HEMATOCRIT 29.6 % (32.4-45.2); HEMOGLOBIN 10.2 GM/dL (10.7-15.3); MCH 33.3 pg (25.7-33.7); MCHC 34.3 g/dl (32.0-36.0); MEAN CELL VOLUME 97.3 fl (80-96); MEAN PLT VOLUME 7.7 fl (7.5-11.1); PLATELET COUNT 100 10^3/uL (134-434); RBC 3.05 M/mm3 (3.60-5.2); RDW 20.8 % (11.6-15.6); WHITE BLOOD COUNT 3.9 K/mm3 (4.0-10.0)
[2023-06-17 08:16] LABS: POTASSIUM 4.9 mmol/L (3.5-5.1)
[2023-06-17 08:20] LABS: CALCIUM 7.8 mg/dL (8.5-10.1)
[2023-06-17 08:21] LABS: ALBUMIN 1.8 g/dl (3.4-5.0); BLOOD UREA NITROGEN 33.6 mg/dL (7-18); MAGNESIUM 1.9 mg/dL (1.8-2.4)
[2023-06-17 08:23] LABS: CREATININE 0.7 mg/dL (0.55-1.3); PHOSPHOROUS 3.4 mg/dL (2.5-4.9)
[2023-06-17 08:25] LABS: BILIRUBIN,TOTAL 3.9 mg/dL (0.2-1); TOT PROT 4.3 g/dl (6.4-8.2)
[2023-06-17] MEDS: LACTATED RINGERS SOLUTION 1,000 ML/1,000 ML INFUS.BAG IV SCH ×2 (10:07→22:47)
[2023-06-17] MEDS: PANTOPRAZOLE SODIUM 40 MG VIAL IVPUSH SCH ×2 (10:07→22:48)
[2023-06-17] MEDS: MULTIVITAMINS (DAILY MVI) TABLET (FP) PO SCH (10:07)
[2023-06-17] MEDS: FLUTICASONE/SALMETEROL (WIXELA) 100 MCG/50 MCG DISKUS IH SCH ×2 (10:08→23:04)
[2023-06-17] MEDS: NYSTATIN 100,000 UNIT/GM TOPICAL CREAM 15 GM TUBE TP SCH ×2 (10:09→23:05)
[2023-06-17] MEDS: NYSTATIN POWDER 100,000 UNITS/GM - 15 GM TOPICAL POWDER TP PRN ×2 (10:09→23:04)
[2023-06-17] MEDS: AMMONIUM LACTATE 12% LOTION 225 GM BOTTLE TP SCH (10:09)
[2023-06-17] MEDS: CHLORHEXIDINE GLUCONATE 0.12% 15ML CUP MM SCH ×2 (10:11→23:05)
[2023-06-17] MEDS: ATORVASTATIN CA 40 MG TABLET (FP) PO SCH (22:49)
[2023-06-18] MEDS: AZTREONAM 1 GM in DEXTROSE 5%-WATER - 50 ML IVPB SCH ×3 (01:20→17:27)
[2023-06-18] MEDS: LACTATED RINGERS SOLUTION 1,000 ML/1,000 ML INFUS.BAG IV SCH (01:49)
[2023-06-18] MEDS: CLINDAMYCIN 600MG PREMIX IVPB 600 MG/50 ML BAG IVPB SCH ×3 (01:49→17:25)
[2023-06-18] MEDS: VALPROATE SODIUM INJECTION 1,000 MG in DEXTROSE 5%-WATER - 100 ML IVPB SCH ×4 (02:36→21:13)
[2023-06-18 03:01] LABS: EPI CELLS 3 /uL (0-25.1); HYALINE CASTS 0 /uL (0-3.1); PH,URINE 5.5 (5.0-8.0); URINE APPEARANCE CLEAR; URINE BACTERIA 4 /uL (0-1359); URINE BILIRUBIN 2+ (NEGATIVE); URINE COLOR DK YELLOW; URINE GLUCOSE (UA) NEGATIVE (NEGATIVE); URINE KETONE NEGATIVE (NEGATIVE); URINE LEUK ESTERASE TRACE (NEGATIVE); URINE NITRITE NEGATIVE (NEGATIVE); URINE PROTEIN NEGATIVE (NEGATIVE); URINE RBC 10 /uL (0-23.9); URINE WBC 33 /uL (0-25.8)
[2023-06-18] MEDS: POLYETHYLENE GLYCOL (HEALTHYLAX) 3350 17 GM PACKET PO SCH ×2 (06:33→14:37)
[2023-06-18] MEDS: LEVOTHYROXINE NA 50 MCG TABLET (FP) PO SCH (06:34)
[2023-06-18] MEDS: CHLORHEXIDINE GLUCONATE 0.12% 15ML CUP MM SCH (11:13)
[2023-06-18] MEDS: PANTOPRAZOLE SODIUM 40 MG VIAL IVPUSH SCH (11:13)
[2023-06-18] MEDS: MULTIVITAMINS (DAILY MVI) TABLET (FP) PO SCH (11:13)
[2023-06-18] MEDS: NYSTATIN 100,000 UNIT/GM TOPICAL CREAM 15 GM TUBE TP SCH (11:13)
[2023-06-18] MEDS: AMMONIUM LACTATE 12% LOTION 225 GM BOTTLE TP SCH (11:14)
[2023-06-18] MEDS: FLUTICASONE/SALMETEROL (WIXELA) 100 MCG/50 MCG DISKUS IH SCH (11:14)
[2023-06-18 12:45] LABS: HEMATOCRIT 32.4 % (32.4-45.2); HEMOGLOBIN 10.8 GM/dL (10.7-15.3); MCHC 33.2 g/dl (32.0-36.0); MEAN CELL VOLUME 99.3 fl (80-96); MEAN PLT VOLUME 7.7 fl (7.5-11.1); PLATELET COUNT 111 10^3/uL (134-434); RBC 3.27 M/mm3 (3.60-5.2); RDW 19.6 % (11.6-15.6); WHITE BLOOD COUNT 3.6 K/mm3 (4.0-10.0)
[2023-06-18 13:01] LABS: POTASSIUM 4.6 mmol/L (3.5-5.1)
[2023-06-18 13:04] LABS: CALCIUM 7.7 mg/dL (8.5-10.1)
[2023-06-18 13:05] LABS: ALBUMIN 1.8 g/dl (3.4-5.0); BLOOD UREA NITROGEN 30.4 mg/dL (7-18); MAGNESIUM 1.8 mg/dL (1.8-2.4)
[2023-06-18 13:08] LABS: CREATININE 0.7 mg/dL (0.55-1.3); TOT PROT 4.3 g/dl (6.4-8.2)
[2023-06-18 13:41] LABS: ANISOCYTOSIS 1+; MACROCYTOSIS 1+
[2023-06-18 14:04] LABS: BILIRUBIN,DIRECT 4.2 mg/dL (0.0-0.2)
[2023-06-18] MEDS ORDERED: DEXTROSE 50%-WATER 25 GM/50 ML DISP.SYRIN ONE (17:10)
[2023-06-18] MEDS ORDERED: DEXTROSE 50%-WATER 25 GM/50 ML DISP.SYRIN IVPUSH ONE (17:11)
[2023-06-18] MEDS ORDERED: DEXTROSE 5%-LACTATED RINGERS 1,000 ML IV SCH (17:30)
[2023-06-18 22:42] VITALS: BP 125/73; PULSE 58; RESP 18; TEMP 98
== END 2023-06-18 22:30 | disposition short-term general hospital (02) | DRG 562 ==
LOC: JER 17:22 → JERBED 06-09 01:22 → OBSVTOIN 06-09 04:09 → J6S 06-09 23:15 → J4S 06-14 17:30
PROVIDERS: ADMIT Internal Medicine; ATTEND Internal Medicine
DX: S42.222A 2-part displaced fracture of surgical neck of left humerus, initial encounter for closed fracture (principal); A41.89 Other specified sepsis; J18.9 Pneumonia, unspecified organism; J96.01 Acute respiratory failure with hypoxia; I69.354 Hemiplegia and hemiparesis following cerebral infarction affecting left non-dominant side; D61.818 Other pancytopenia; I50.32 Chronic diastolic (congestive) heart failure; I11.0 Hypertensive heart disease with heart failure; G25.81 Restless legs syndrome; E03.9 Hypothyroidism, unspecified; J44.9 Chronic obstructive pulmonary disease, unspecified; Z99.81 Dependence on supplemental oxygen; I10 Essential (primary) hypertension; D69.6 Thrombocytopenia, unspecified; K58.9 Irritable bowel syndrome, unspecified; E78.5 Hyperlipidemia, unspecified; I25.2 Old myocardial infarction; I48.91 Unspecified atrial fibrillation; D53.9 Nutritional anemia, unspecified; G40.909 Epilepsy, unspecified, not intractable, without status epilepticus; R94.5 Abnormal results of liver function studies; I25.10 Atherosclerotic heart disease of native coronary artery without angina pectoris; E80.6 Other disorders of bilirubin metabolism; R50.9 Fever, unspecified; K80.50 Calculus of bile duct without cholangitis or cholecystitis without obstruction; I95.9 Hypotension, unspecified; K52.89 Other specified noninfective gastroenteritis and colitis; Z88.0 Allergy status to penicillin; G43.909 Migraine, unspecified, not intractable, without status migrainosus; W18.30XA Fall on same level, unspecified, initial encounter; Y92.098 Other place in other non-institutional residence as the place of occurrence of the external cause; Z96.651 Presence of right artificial knee joint; Z86.718 Personal history of other venous thrombosis and embolism
CPT/HCPCS: 36415; 36430; 36600; 70450-TC; 71045-TC-FY; 71101-TC-RT-FY; 72125-TC; 72170-TC-FY; 73030-TC-LT-FY; 73060-TC-LT-FY; 73070-TC-LT-FY; 73200-TC-RT; 74018-TC-FY; 74176-TC; 74181-TC; 76705-TC; 80048; 80053; 80164; 81003; 82247; 82248; 82550; 82553; 82607; 82728; 82746; 82803; 82962; 82977; 83010; 83540; 83550; 83605; 83615; 83735; 83883; 84100; 84146; 84155; 84165; 84443; 84450; 84460; 84484; 85025; 85027; 85045; 85610; 85730; 86704; 86708; 86803; 86850; 86900; 86901; 86922; 87040; 87086; 87186; 87340; 87517; 87635; 93005; 93010; 93306-TC; 93971; 94010; 97162-GP; 99285-25; G0378; P9058

== ENCOUNTER 2023-09-14 11:09 | Inpatient (IN) | payer OTHER ==
[2023-09-14 11:29] VITALS: BMI 30.7
[2023-09-14] MEDS ORDERED: ACETAMINOPHEN 1000 MG/100 ML BAG IVPB ONE (11:50)
[2023-09-14] MEDS ORDERED: SODIUM CHLORIDE 0.9% 500 ML INFUS.BAG IV ONE (11:50)
[2023-09-14 12:17] LABS: VENOUS O2 SATURATION 55.5 % (70-80); VENOUS PCO2 40.2 mmHg (38-52); VENOUS PH 7.42 (7.310-7.410)
[2023-09-14 12:26] LABS: BASO % 0.2 % (0-2.0); HEMATOCRIT 38.1 % (32.4-45.2); HEMOGLOBIN 12.5 GM/dL (10.7-15.3); MCH 34.4 pg (25.7-33.7); MCHC 32.7 g/dl (32.0-36.0); MEAN PLT VOLUME 7.8 fl (7.5-11.1); MONO % 12.7 % (3.8-10.2); NEUT % 79.1 % (42.8-82.8); PLATELET COUNT 66 10^3/uL (134-434); RBC 3.63 M/mm3 (3.60-5.2); RDW 14.8 % (11.6-15.6); WHITE BLOOD COUNT 7.6 K/mm3 (4.0-10.0)
[2023-09-14] MEDS ORDERED: ACETAMINOPHEN INJECTION 100 ML IVPB ONE (12:29)
[2023-09-14 12:37] LABS: INR 1.21 (0.83-1.09)
[2023-09-14 12:40] LABS: ACTIVATED PTT 30.5 SECONDS (25.2-36.5)
[2023-09-14 12:49] LABS: CHLORIDE 106 mmol/L (98-107); POTASSIUM 3.9 mmol/L (3.5-5.1); SODIUM 141 mmol/L (136-145)
[2023-09-14 12:54] LABS: CALCIUM 8.1 mg/dL (8.5-10.1)
[2023-09-14 12:55] LABS: ALBUMIN 2.6 g/dl (3.4-5.0); ANION GAP 7 mmol/L (4-13); BLOOD UREA NITROGEN 32.4 mg/dL (7-18); CO2 28 mmol/L (21-32); GLUCOSE,RANDOM 77 mg/dL (74-106)
[2023-09-14 12:57] LABS: SGOT/AST 22 U/L (15-37); SGPT/ALT 16 U/L (13-61)
[2023-09-14 12:58] LABS: CREATININE 1.2 mg/dL (0.55-1.3); TOT PROT 5.8 g/dl (6.4-8.2)
[2023-09-14 12:59] LABS: BILIRUBIN,TOTAL 0.8 mg/dL (0.2-1)
[2023-09-14 13:00] LABS: ALK PHOS 108 U/L (45-117)
[2023-09-14 13:04] LABS: EPI CELLS 11 /uL (0-25.1); HYALINE CASTS 1 /uL (0-3.1); PH,URINE 6.5 (5.0-8.0); URINE APPEARANCE TURBID; URINE BACTERIA >9,000 /uL (0-1359); URINE BILIRUBIN NEGATIVE (NEGATIVE); URINE COLOR ORANGE; URINE GLUCOSE (UA) NEGATIVE (NEGATIVE); URINE KETONE 1+ (NEGATIVE); URINE LEUK ESTERASE 3+ (NEGATIVE); URINE NITRITE NEGATIVE (NEGATIVE); URINE PROTEIN 3+ (NEGATIVE); URINE RBC 4708 /uL (0-23.9); URINE WBC 5587 /uL (0-25.8)
[2023-09-14 13:26] LABS: ANISOCYTOSIS 1+; MACROCYTOSIS 1+
[2023-09-14] MEDS ORDERED: DEXTROSE 50%-WATER - 25 GM/50 ML VIAL IVPUSH ONE (13:32)
[2023-09-14] MEDS ORDERED: DEXTROSE 50%-WATER 25 GM/50 ML DISP.SYRIN ONE (13:36)
[2023-09-14] MEDS ORDERED: VANCOMYCIN 1,000 MG in DEXTROSE 5%-WATER - 250 ML IVPB ONE (13:59)
[2023-09-14] MEDS ORDERED: AZTREONAM 1 GM in DEXTROSE 5%-WATER - 50 ML IVPB ONE (13:59)
[2023-09-14] MEDS ORDERED: VALPROATE SODIUM 500 MG/5 ML VIAL IVPB SCH (14:00)
[2023-09-14] MEDS ORDERED: VANCOMYCIN 1 GRAM (PRE-DOCKED) 1,000 MG/250 ML BAG IVPB ONE (14:20)
[2023-09-14] MEDS ORDERED: AZTREONAM 1 GM VIAL (RESTRICTED TO ID) ONE (14:20)
[2023-09-14] MEDS ORDERED: VALPROATE SODIUM 500 MG/5 ML VIAL ONE (14:44)
[2023-09-14] MEDS ORDERED: GABAPENTIN 100 MG CAPSULE ONE (16:29)
[2023-09-14] MEDS ORDERED: ACETAMINOPHEN 1000 MG/100 ML BAG IVPB PRN (16:31)
[2023-09-14] MEDS: METOCLOPRAMIDE HCL 10 MG TABLET (FP) PO SCH ×2 (16:42→22:59)
[2023-09-14] MEDS: SODIUM CHLORIDE 1,000 ML IV SCH (16:42)
[2023-09-14] MEDS ORDERED: REMDESIVIR 200 MG in SODIUM CHLORIDE 250 ML IVPB ONE ×2 (17:29→23:30)
[2023-09-14] MEDS ORDERED: DICYCLOMINE HCL 20 MG TABLET PO SCH (22:00)
[2023-09-14] MEDS: PRAMIPEXOLE DIHYDROCHLORIDE 0.25 MG TABLET PO SCH (22:58)
[2023-09-14] MEDS: FLUTICASONE/SALMETEROL (WIXELA) 100 MCG/50 MCG DISKUS IH SCH (22:58)
[2023-09-14] MEDS: DICYCLOMINE HCL 10 MG CAPSULE PO SCH (22:58)
[2023-09-14] MEDS: VALPROATE SODIUM 250 MG/5 ML UNIT DOSE CUP PO SCH (22:58)
[2023-09-14] MEDS: APIXABAN 5 MG TABLET PO SCH (22:59)
[2023-09-14] MEDS: ATORVASTATIN CA 40 MG TABLET (FP) PO SCH (22:59)
[2023-09-14] MEDS: SENNOSIDES 8.6MG TABLET (FP) PO SCH (22:59)
[2023-09-14] MEDS: GABAPENTIN 100 MG CAPSULE PO SCH (22:59)
[2023-09-14] MEDS: levETIRAcetam 500 MG TABLET (FP) PO SCH (22:59)
[2023-09-14] MEDS: MELATONIN 1 MG TABLET PO SCH (22:59)
[2023-09-15] MEDS ORDERED: VANCOMYCIN 1,000 MG in DEXTROSE 5%-WATER - 250 ML IVPB SCH (04:00)
[2023-09-15] MEDS: VANCOMYCIN/WATER FOR INJ (PEG) 1,000 MG/200 ML BAG IVPB SCH ×2 (04:03→15:48)
[2023-09-15] MEDS: METOCLOPRAMIDE HCL 10 MG TABLET (FP) PO SCH ×4 (04:03→22:55)
[2023-09-15] MEDS: AZTREONAM 1 GM in DEXTROSE 5%-WATER - 50 ML IVPB SCH ×4 (04:04→18:19)
[2023-09-15] MEDS: GABAPENTIN 100 MG CAPSULE PO SCH ×3 (06:37→22:55)
[2023-09-15] MEDS: LEVOTHYROXINE NA 50 MCG TABLET (FP) PO SCH (06:37)
[2023-09-15 07:18] LABS: BASO % 0.5 % (0-2.0); EOS % 0.3 % (0-4.5); HEMATOCRIT 32.1 % (32.4-45.2); HEMOGLOBIN 10.6 GM/dL (10.7-15.3); LYMPH % 14.8 % (8-40); MCH 35.4 pg (25.7-33.7); MCHC 33.1 g/dl (32.0-36.0); MEAN PLT VOLUME 7.6 fl (7.5-11.1); MONO % 14.9 % (3.8-10.2); NEUT % 69.5 % (42.8-82.8); PLATELET COUNT 53 10^3/uL (134-434); RDW 14.7 % (11.6-15.6); WHITE BLOOD COUNT 6.2 K/mm3 (4.0-10.0)
[2023-09-15 07:46] LABS: ALBUMIN 2.2 g/dl (3.4-5.0); BLOOD UREA NITROGEN 29.7 mg/dL (7-18); CALCIUM 7.7 mg/dL (8.5-10.1); MAGNESIUM 1.7 mg/dL (1.8-2.4)
[2023-09-15 07:50] LABS: CREATININE 0.8 mg/dL (0.55-1.3); PHOSPHOROUS 3.6 mg/dL (2.5-4.9)
[2023-09-15 07:51] LABS: BILIRUBIN,TOTAL 0.6 mg/dL (0.2-1)
[2023-09-15] MEDS ORDERED: FUROSEMIDE 40 MG TABLET (FP) PO SCH (10:00)
[2023-09-15] MEDS ORDERED: POLYETHYLENE GLYCOL 3350 255 GM BTL PO SCH ×2 (10:00→15:30)
[2023-09-15] MEDS: levETIRAcetam 500 MG TABLET (FP) PO SCH ×2 (10:02→22:54)
[2023-09-15] MEDS: ALLOPURINOL 100 MG TABLET (FP) PO SCH (10:02)
[2023-09-15] MEDS: PANTOPRAZOLE 40 MG TABLET PO SCH (10:02)
[2023-09-15] MEDS: FOLIC ACID 1 MG TABLET (FP) PO SCH (10:02)
[2023-09-15] MEDS: metoPROLOL SUCCINATE 25 MG TAB.SR.24H (FP) PO SCH (10:02)
[2023-09-15] MEDS: APIXABAN 5 MG TABLET PO SCH ×2 (10:02→22:54)
[2023-09-15] MEDS: MULTIVITAMINS (DAILY MVI) TABLET (FP) PO SCH (10:02)
[2023-09-15] MEDS: VALPROATE SODIUM 250 MG/5 ML UNIT DOSE CUP PO SCH ×2 (10:06→22:55)
[2023-09-15] MEDS: PRAMIPEXOLE DIHYDROCHLORIDE 0.25 MG TABLET PO SCH ×2 (10:07→22:55)
[2023-09-15] MEDS: CYANOCOBALAMIN (VITAMIN B-12) 100 MCG TABLET PO SCH (10:07)
[2023-09-15] MEDS: DICYCLOMINE HCL 10 MG CAPSULE PO SCH ×2 (10:07→22:56)
[2023-09-15] MEDS: FLUTICASONE/SALMETEROL (WIXELA) 100 MCG/50 MCG DISKUS IH SCH ×2 (11:54→22:53)
[2023-09-15] MEDS ORDERED: MAGNESIUM SULF 50% (8.12 MEQ/2 ML-1 GM VIAL) IVPB ONE (15:05)
[2023-09-15] MEDS: DEXAMETHASONE SOD PHOSPHATE 4 MG/1 ML VIAL IVPUSH SCH (15:12)
[2023-09-15] MEDS: POLYETHYLENE GLYCOL (HEALTHYLAX) 3350 17 GM PACKET PO SCH (15:48)
[2023-09-15] MEDS: SODIUM CHLORIDE 1,000 ML IV SCH (17:46)
[2023-09-15] MEDS: REMDESIVIR 100 MG in SODIUM CHLORIDE 250 ML IVPB SCH (18:02)
[2023-09-15] MEDS: ATORVASTATIN CA 40 MG TABLET (FP) PO SCH (22:55)
[2023-09-15] MEDS: MELATONIN 1 MG TABLET PO SCH (22:56)
[2023-09-15] MEDS: SENNOSIDES 8.6MG TABLET (FP) PO SCH (22:56)
[2023-09-16] MEDS ORDERED: VANCOMYCIN/WATER FOR INJ (PEG) 1,000 MG/200 ML BAG IVPB SCH (04:00)
[2023-09-16] MEDS: AZTREONAM 1 GM in DEXTROSE 5%-WATER - 50 ML IVPB SCH ×2 (04:08→16:11)
[2023-09-16] MEDS: GABAPENTIN 100 MG CAPSULE PO SCH ×3 (05:47→21:30)
[2023-09-16] MEDS: METOCLOPRAMIDE HCL 10 MG TABLET (FP) PO SCH ×4 (05:47→21:30)
[2023-09-16] MEDS: LEVOTHYROXINE NA 50 MCG TABLET (FP) PO SCH (06:09)
[2023-09-16 08:11] LABS: BASO % 0.2 % (0-2.0); HEMATOCRIT 27.3 % (32.4-45.2); HEMOGLOBIN 8.9 GM/dL (10.7-15.3); LYMPH % 14.8 % (8-40); MCH 35.3 pg (25.7-33.7); MCHC 32.7 g/dl (32.0-36.0); MEAN CELL VOLUME 107.9 fl (80-96); MEAN PLT VOLUME 8.6 fl (7.5-11.1); MONO % 10.5 % (3.8-10.2); NEUT % 74.5 % (42.8-82.8); PLATELET COUNT 53 10^3/uL (134-434); RBC 2.53 M/mm3 (3.60-5.2); RDW 14.4 % (11.6-15.6); WHITE BLOOD COUNT 4.2 K/mm3 (4.0-10.0)
[2023-09-16 08:33] LABS: POTASSIUM 4.2 mmol/L (3.5-5.1)
[2023-09-16 08:35] LABS: ALBUMIN 1.9 g/dl (3.4-5.0); BLOOD UREA NITROGEN 29.6 mg/dL (7-18); CALCIUM 7.8 mg/dL (8.5-10.1); MAGNESIUM 1.7 mg/dL (1.8-2.4)
[2023-09-16 08:38] LABS: CREATININE 0.8 mg/dL (0.55-1.3); PHOSPHOROUS 3.7 mg/dL (2.5-4.9)
[2023-09-16 08:40] LABS: BILIRUBIN,TOTAL 0.2 mg/dL (0.2-1); TOT PROT 4.5 g/dl (6.4-8.2)
[2023-09-16] MEDS: MULTIVITAMINS (DAILY MVI) TABLET (FP) PO SCH (10:38)
[2023-09-16] MEDS: FOLIC ACID 1 MG TABLET (FP) PO SCH (10:38)
[2023-09-16] MEDS: ALLOPURINOL 100 MG TABLET (FP) PO SCH (10:38)
[2023-09-16] MEDS: levETIRAcetam 500 MG TABLET (FP) PO SCH ×2 (10:38→21:30)
[2023-09-16] MEDS: PANTOPRAZOLE 40 MG TABLET PO SCH (10:38)
[2023-09-16] MEDS: DICYCLOMINE HCL 10 MG CAPSULE PO SCH ×2 (10:39→21:31)
[2023-09-16] MEDS: APIXABAN 5 MG TABLET PO SCH ×2 (10:39→21:30)
[2023-09-16] MEDS: metoPROLOL SUCCINATE 25 MG TAB.SR.24H (FP) PO SCH ×2 (10:39→21:29)
[2023-09-16] MEDS: PRAMIPEXOLE DIHYDROCHLORIDE 0.25 MG TABLET PO SCH ×2 (10:39→21:31)
[2023-09-16] MEDS: DEXAMETHASONE SOD PHOSPHATE 4 MG/1 ML VIAL IVPUSH SCH (10:39)
[2023-09-16] MEDS: VALPROATE SODIUM 250 MG/5 ML UNIT DOSE CUP PO SCH ×2 (10:40→21:31)
[2023-09-16] MEDS: CYANOCOBALAMIN (VITAMIN B-12) 100 MCG TABLET PO SCH (10:40)
[2023-09-16] MEDS: POLYETHYLENE GLYCOL (HEALTHYLAX) 3350 17 GM PACKET PO SCH (10:42)
[2023-09-16] MEDS: FLUTICASONE/SALMETEROL (WIXELA) 100 MCG/50 MCG DISKUS IH SCH ×2 (11:11→22:00)
[2023-09-16] MEDS ORDERED: MAGNESIUM SULF 50% (8.12 MEQ/2 ML-1 GM VIAL) IVPB ONE (14:00)
[2023-09-16] MEDS: VANCOMYCIN 1,000 MG in DEXTROSE 5%-WATER - 250 ML IVPB SCH (15:51)
[2023-09-16] MEDS: VANCOMYCIN/WATER FOR INJ (PEG) 1,000 MG/200 ML BAG IVPB SCH (17:55)
[2023-09-16] MEDS: REMDESIVIR 100 MG in SODIUM CHLORIDE 250 ML IVPB SCH (18:52)
[2023-09-16] MEDS ORDERED: SODIUM CHLORIDE 1,000 ML IV SCH (19:30)
[2023-09-16] MEDS: ATORVASTATIN CA 40 MG TABLET (FP) PO SCH (21:29)
[2023-09-16] MEDS: MELATONIN 1 MG TABLET PO SCH (21:30)
[2023-09-17] MEDS ORDERED: AZTREONAM 1 GM VIAL (RESTRICTED TO ID) ONE (02:46)
[2023-09-17] MEDS: AZTREONAM 1 GM in DEXTROSE 5%-WATER - 50 ML IVPB SCH ×2 (03:56→17:11)
[2023-09-17] MEDS: METOCLOPRAMIDE HCL 10 MG TABLET (FP) PO SCH ×4 (03:59→21:40)
[2023-09-17] MEDS: VANCOMYCIN/WATER FOR INJ (PEG) 1,000 MG/200 ML BAG IVPB SCH ×2 (04:00→17:11)
[2023-09-17] MEDS: GABAPENTIN 100 MG CAPSULE PO SCH ×3 (05:30→21:36)
[2023-09-17] MEDS: LEVOTHYROXINE NA 50 MCG TABLET (FP) PO SCH (06:12)
[2023-09-17] MEDS: VANCOMYCIN 1,000 MG in DEXTROSE 5%-WATER - 250 ML IVPB SCH (07:19)
[2023-09-17 09:10] LABS: BASO % 0.2 % (0-2.0); EOS % 0.2 % (0-4.5); HEMATOCRIT 29.8 % (32.4-45.2); HEMOGLOBIN 9.6 GM/dL (10.7-15.3); LYMPH % 24.9 % (8-40); MCH 34.6 pg (25.7-33.7); MCHC 32.4 g/dl (32.0-36.0); MEAN CELL VOLUME 106.8 fl (80-96); MEAN PLT VOLUME 8.5 fl (7.5-11.1); MONO % 9.9 % (3.8-10.2); NEUT % 64.8 % (42.8-82.8); PLATELET COUNT 75 10^3/uL (134-434); RBC 2.79 M/mm3 (3.60-5.2); RDW 14.6 % (11.6-15.6); WHITE BLOOD COUNT 4.4 K/mm3 (4.0-10.0)
[2023-09-17 09:20] LABS: POTASSIUM 4.6 mmol/L (3.5-5.1)
[2023-09-17 09:27] LABS: CREATININE 0.8 mg/dL (0.55-1.3)
[2023-09-17 09:28] LABS: ALBUMIN 1.9 g/dl (3.4-5.0); MAGNESIUM 2.2 mg/dL (1.8-2.4)
[2023-09-17 09:29] LABS: BILIRUBIN,TOTAL 0.2 mg/dL (0.2-1); TOT PROT 4.6 g/dl (6.4-8.2)
[2023-09-17 09:31] LABS: PHOSPHOROUS 2.8 mg/dL (2.5-4.9)
[2023-09-17] MEDS: MULTIVITAMINS (DAILY MVI) TABLET (FP) PO SCH (10:29)
[2023-09-17] MEDS: FOLIC ACID 1 MG TABLET (FP) PO SCH (10:29)
[2023-09-17] MEDS: ALLOPURINOL 100 MG TABLET (FP) PO SCH (10:29)
[2023-09-17] MEDS: metoPROLOL SUCCINATE 25 MG TAB.SR.24H (FP) PO SCH (10:29)
[2023-09-17] MEDS: DEXAMETHASONE SOD PHOSPHATE 4 MG/1 ML VIAL IVPUSH SCH (10:30)
[2023-09-17] MEDS: CYANOCOBALAMIN (VITAMIN B-12) 100 MCG TABLET PO SCH (10:30)
[2023-09-17] MEDS: APIXABAN 5 MG TABLET PO SCH ×2 (10:30→21:36)
[2023-09-17] MEDS: levETIRAcetam 500 MG TABLET (FP) PO SCH ×2 (10:30→21:36)
[2023-09-17] MEDS: PANTOPRAZOLE 40 MG TABLET PO SCH (10:30)
[2023-09-17] MEDS: VALPROATE SODIUM 250 MG/5 ML UNIT DOSE CUP PO SCH ×2 (10:31→21:38)
[2023-09-17] MEDS: DICYCLOMINE HCL 10 MG CAPSULE PO SCH ×2 (10:31→21:37)
[2023-09-17] MEDS: PRAMIPEXOLE DIHYDROCHLORIDE 0.25 MG TABLET PO SCH ×2 (10:31→21:37)
[2023-09-17] MEDS: FLUTICASONE/SALMETEROL (WIXELA) 100 MCG/50 MCG DISKUS IH SCH ×2 (10:33→21:36)
[2023-09-17] MEDS: ATORVASTATIN CA 40 MG TABLET (FP) PO SCH (21:36)
[2023-09-17] MEDS: MELATONIN 1 MG TABLET PO SCH (21:36)
[2023-09-18] MEDS: AZTREONAM 1 GM in DEXTROSE 5%-WATER - 50 ML IVPB SCH (04:35)
[2023-09-18] MEDS: METOCLOPRAMIDE HCL 10 MG TABLET (FP) PO SCH ×3 (04:35→17:31)
[2023-09-18] MEDS: GABAPENTIN 100 MG CAPSULE PO SCH ×3 (05:59→23:00)
[2023-09-18] MEDS: VANCOMYCIN/WATER FOR INJ (PEG) 1,000 MG/200 ML BAG IVPB SCH (05:59)
[2023-09-18] MEDS: LEVOTHYROXINE NA 50 MCG TABLET (FP) PO SCH (06:01)
[2023-09-18] MEDS: DEXAMETHASONE SOD PHOSPHATE 4 MG/1 ML VIAL IVPUSH SCH (10:55)
[2023-09-18] MEDS: DICYCLOMINE HCL 10 MG CAPSULE PO SCH ×2 (10:57→23:00)
[2023-09-18] MEDS: VALPROATE SODIUM 250 MG/5 ML UNIT DOSE CUP PO SCH ×2 (10:58→23:00)
[2023-09-18] MEDS: FLUTICASONE/SALMETEROL (WIXELA) 100 MCG/50 MCG DISKUS IH SCH ×2 (10:59→23:00)
[2023-09-18] MEDS: levETIRAcetam 500 MG TABLET (FP) PO SCH ×2 (11:56→23:00)
[2023-09-18] MEDS: MULTIVITAMINS (DAILY MVI) TABLET (FP) PO SCH (11:56)
[2023-09-18] MEDS: PANTOPRAZOLE 40 MG TABLET PO SCH (11:56)
[2023-09-18] MEDS: metoPROLOL SUCCINATE 25 MG TAB.SR.24H (FP) PO SCH (11:56)
[2023-09-18] MEDS: FOLIC ACID 1 MG TABLET (FP) PO SCH (11:56)
[2023-09-18] MEDS: ALLOPURINOL 100 MG TABLET (FP) PO SCH (11:56)
[2023-09-18] MEDS: APIXABAN 5 MG TABLET PO SCH ×2 (11:57→23:00)
[2023-09-18] MEDS: PRAMIPEXOLE DIHYDROCHLORIDE 0.25 MG TABLET PO SCH ×2 (11:59→23:00)
[2023-09-18] MEDS: CYANOCOBALAMIN (VITAMIN B-12) 100 MCG TABLET PO SCH (12:00)
[2023-09-18 13:35] LABS: BASO % 0.1 % (0-2.0); EOS % 0.5 % (0-4.5); HEMATOCRIT 30.1 % (32.4-45.2); HEMOGLOBIN 9.9 GM/dL (10.7-15.3); MCH 35.3 pg (25.7-33.7); MEAN CELL VOLUME 107.2 fl (80-96); MEAN PLT VOLUME 8.1 fl (7.5-11.1); MONO % 11.7 % (3.8-10.2); NEUT % 49.7 % (42.8-82.8); PLATELET COUNT 94 10^3/uL (134-434); RBC 2.81 M/mm3 (3.60-5.2); RDW 14.1 % (11.6-15.6); WHITE BLOOD COUNT 4.4 K/mm3 (4.0-10.0)
[2023-09-18 13:57] LABS: POTASSIUM 4.4 mmol/L (3.5-5.1)
[2023-09-18 14:00] LABS: BLOOD UREA NITROGEN 31.9 mg/dL (7-18); CALCIUM 8.2 mg/dL (8.5-10.1)
[2023-09-18 14:01] LABS: ALBUMIN 2.1 g/dl (3.4-5.0); MAGNESIUM 1.9 mg/dL (1.8-2.4)
[2023-09-18 14:04] LABS: PHOSPHOROUS 3.1 mg/dL (2.5-4.9)
[2023-09-18 14:06] LABS: BILIRUBIN,TOTAL 0.3 mg/dL (0.2-1)
[2023-09-18 14:07] LABS: CREATININE 0.7 mg/dL (0.55-1.3)
[2023-09-18 15:09] LABS: ANISOCYTOSIS 2+; MACROCYTOSIS 0; OVALOCYTE 1+; TEAR DROP CELLS 1+
[2023-09-18] MEDS: MELATONIN 1 MG TABLET PO SCH (23:00)
[2023-09-18] MEDS: ATORVASTATIN CA 40 MG TABLET (FP) PO SCH (23:00)
[2023-09-19] MEDS ORDERED: PORTA CATH FLUSH 10 ML IVPUSH PRN (03:49)
[2023-09-19] MEDS: LEVOTHYROXINE NA 50 MCG TABLET (FP) PO SCH (06:38)
[2023-09-19] MEDS: GABAPENTIN 100 MG CAPSULE PO SCH ×3 (06:38→21:22)
[2023-09-19 09:19] LABS: HEMATOCRIT 28.4 % (32.4-45.2); HEMOGLOBIN 9.3 GM/dL (10.7-15.3); MCH 34.7 pg (25.7-33.7); MCHC 32.5 g/dl (32.0-36.0); MEAN CELL VOLUME 106.6 fl (80-96); MEAN PLT VOLUME 8.3 fl (7.5-11.1); PLATELET COUNT 90 10^3/uL (134-434); RBC 2.67 M/mm3 (3.60-5.2); WHITE BLOOD COUNT 4.4 K/mm3 (4.0-10.0)
[2023-09-19 09:22] LABS: POTASSIUM 4.6 mmol/L (3.5-5.1)
[2023-09-19 09:26] LABS: CALCIUM 8.2 mg/dL (8.5-10.1)
[2023-09-19 09:27] LABS: BLOOD UREA NITROGEN 35.3 mg/dL (7-18)
[2023-09-19 09:30] LABS: CREATININE 0.8 mg/dL (0.55-1.3)
[2023-09-19 09:31] LABS: BILIRUBIN,TOTAL 0.3 mg/dL (0.2-1); TOT PROT 4.7 g/dl (6.4-8.2)
[2023-09-19] MEDS: DEXAMETHASONE SOD PHOSPHATE 4 MG/1 ML VIAL IVPUSH SCH (10:13)
[2023-09-19] MEDS: FLUTICASONE/SALMETEROL (WIXELA) 100 MCG/50 MCG DISKUS IH SCH ×2 (10:13→21:29)
[2023-09-19] MEDS: DICYCLOMINE HCL 10 MG CAPSULE PO SCH ×2 (10:14→21:24)
[2023-09-19] MEDS: ALLOPURINOL 100 MG TABLET (FP) PO SCH (11:11)
[2023-09-19] MEDS: levETIRAcetam 500 MG TABLET (FP) PO SCH ×2 (11:11→21:23)
[2023-09-19] MEDS: MULTIVITAMINS (DAILY MVI) TABLET (FP) PO SCH (11:11)
[2023-09-19] MEDS: APIXABAN 5 MG TABLET PO SCH ×2 (11:11→21:23)
[2023-09-19] MEDS: FOLIC ACID 1 MG TABLET (FP) PO SCH (11:11)
[2023-09-19] MEDS: metoPROLOL SUCCINATE 25 MG TAB.SR.24H (FP) PO SCH (11:11)
[2023-09-19] MEDS: PANTOPRAZOLE 40 MG TABLET PO SCH (11:12)
[2023-09-19] MEDS: CYANOCOBALAMIN (VITAMIN B-12) 100 MCG TABLET PO SCH (11:14)
[2023-09-19] MEDS: PRAMIPEXOLE DIHYDROCHLORIDE 0.25 MG TABLET PO SCH ×2 (11:14→21:25)
[2023-09-19] MEDS: VALPROATE SODIUM 250 MG/5 ML UNIT DOSE CUP PO SCH ×2 (11:15→21:25)
[2023-09-19] MEDS: MELATONIN 1 MG TABLET PO SCH (21:22)
[2023-09-19] MEDS: ATORVASTATIN CA 40 MG TABLET (FP) PO SCH (21:23)
[2023-09-20] MEDS: GABAPENTIN 100 MG CAPSULE PO SCH ×3 (06:01→21:53)
[2023-09-20] MEDS: LEVOTHYROXINE NA 50 MCG TABLET (FP) PO SCH (06:01)
[2023-09-20] MEDS: FLUTICASONE/SALMETEROL (WIXELA) 100 MCG/50 MCG DISKUS IH SCH ×2 (10:13→21:55)
[2023-09-20] MEDS: DEXAMETHASONE SOD PHOSPHATE 4 MG/1 ML VIAL IVPUSH SCH (11:27)
[2023-09-20] MEDS: APIXABAN 5 MG TABLET PO SCH ×2 (11:27→21:53)
[2023-09-20] MEDS: ALLOPURINOL 100 MG TABLET (FP) PO SCH (11:28)
[2023-09-20] MEDS: DICYCLOMINE HCL 10 MG CAPSULE PO SCH ×2 (11:28→21:52)
[2023-09-20] MEDS: MULTIVITAMINS (DAILY MVI) TABLET (FP) PO SCH (11:28)
[2023-09-20] MEDS: FOLIC ACID 1 MG TABLET (FP) PO SCH (11:28)
[2023-09-20] MEDS: metoPROLOL SUCCINATE 25 MG TAB.SR.24H (FP) PO SCH (11:28)
[2023-09-20] MEDS: PANTOPRAZOLE 40 MG TABLET PO SCH (11:28)
[2023-09-20] MEDS: levETIRAcetam 500 MG TABLET (FP) PO SCH ×2 (11:28→21:53)
[2023-09-20] MEDS: VALPROATE SODIUM 250 MG/5 ML UNIT DOSE CUP PO SCH ×2 (11:29→21:53)
[2023-09-20] MEDS: CYANOCOBALAMIN (VITAMIN B-12) 100 MCG TABLET PO SCH (11:29)
[2023-09-20] MEDS: PRAMIPEXOLE DIHYDROCHLORIDE 0.25 MG TABLET PO SCH ×2 (11:29→21:53)
[2023-09-20] MEDS ORDERED: GLYCERIN 1 RECTAL SUPPOSITORY, ADULT RC ONE (12:30)
[2023-09-20 12:44] LABS: POTASSIUM 4.3 mmol/L (3.5-5.1)
[2023-09-20 12:45] LABS: CALCIUM 8.4 mg/dL (8.5-10.1)
[2023-09-20 12:46] LABS: BLOOD UREA NITROGEN 33.8 mg/dL (7-18)
[2023-09-20 12:49] LABS: CREATININE 0.8 mg/dL (0.55-1.3)
[2023-09-20] MEDS: DOCUSATE SODIUM 100 MG CAPSULE (FP) PO SCH ×2 (13:13→21:53)
[2023-09-20] MEDS ORDERED: BISACODYL 5 MG TABLET.DR (FP) PO ONE (17:52)
[2023-09-20] MEDS: MELATONIN 1 MG TABLET PO SCH (21:53)
[2023-09-20] MEDS: ATORVASTATIN CA 40 MG TABLET (FP) PO SCH (21:53)
[2023-09-21] MEDS: GABAPENTIN 100 MG CAPSULE PO SCH ×3 (05:51→21:34)
[2023-09-21] MEDS: LEVOTHYROXINE NA 50 MCG TABLET (FP) PO SCH (06:03)
[2023-09-21 08:02] LABS: HEMATOCRIT 28.3 % (32.4-45.2); HEMOGLOBIN 9.5 GM/dL (10.7-15.3); MCH 35.6 pg (25.7-33.7); MCHC 33.7 g/dl (32.0-36.0); MEAN CELL VOLUME 105.8 fl (80-96); MEAN PLT VOLUME 7.7 fl (7.5-11.1); PLATELET COUNT 167 10^3/uL (134-434); RBC 2.68 M/mm3 (3.60-5.2); RDW 13.5 % (11.6-15.6); WHITE BLOOD COUNT 6.1 K/mm3 (4.0-10.0)
[2023-09-21 08:31] LABS: POTASSIUM 4.4 mmol/L (3.5-5.1)
[2023-09-21 08:37] LABS: BLOOD UREA NITROGEN 32.4 mg/dL (7-18); CALCIUM 8.1 mg/dL (8.5-10.1); MAGNESIUM 1.6 mg/dL (1.8-2.4)
[2023-09-21 08:40] LABS: CREATININE 0.8 mg/dL (0.55-1.3); PHOSPHOROUS 3.4 mg/dL (2.5-4.9)
[2023-09-21 08:42] LABS: ALBUMIN 2.1 g/dl (3.4-5.0); BILIRUBIN,TOTAL 0.3 mg/dL (0.2-1); TOT PROT 4.7 g/dl (6.4-8.2)
[2023-09-21] MEDS: DEXAMETHASONE SOD PHOSPHATE 4 MG/1 ML VIAL IVPUSH SCH (10:41)
[2023-09-21 10:42] LABS: ANISOCYTOSIS 2+; MACROCYTOSIS 0; TEAR DROP CELLS 0
[2023-09-21] MEDS: MULTIVITAMINS (DAILY MVI) TABLET (FP) PO SCH (10:42)
[2023-09-21] MEDS: PANTOPRAZOLE 40 MG TABLET PO SCH (10:42)
[2023-09-21] MEDS: metoPROLOL SUCCINATE 25 MG TAB.SR.24H (FP) PO SCH (10:42)
[2023-09-21] MEDS: FOLIC ACID 1 MG TABLET (FP) PO SCH (10:42)
[2023-09-21] MEDS: DOCUSATE SODIUM 100 MG CAPSULE (FP) PO SCH ×2 (10:42→21:35)
[2023-09-21] MEDS: levETIRAcetam 500 MG TABLET (FP) PO SCH ×2 (10:42→21:34)
[2023-09-21] MEDS: APIXABAN 5 MG TABLET PO SCH ×2 (10:43→21:35)
[2023-09-21] MEDS: ALLOPURINOL 100 MG TABLET (FP) PO SCH (10:43)
[2023-09-21] MEDS: DICYCLOMINE HCL 10 MG CAPSULE PO SCH ×2 (10:44→21:35)
[2023-09-21] MEDS: PRAMIPEXOLE DIHYDROCHLORIDE 0.25 MG TABLET PO SCH ×2 (10:44→21:36)
[2023-09-21] MEDS: CYANOCOBALAMIN (VITAMIN B-12) 100 MCG TABLET PO SCH (10:45)
[2023-09-21] MEDS: VALPROATE SODIUM 250 MG/5 ML UNIT DOSE CUP PO SCH ×2 (10:47→21:36)
[2023-09-21] MEDS: FLUTICASONE/SALMETEROL (WIXELA) 100 MCG/50 MCG DISKUS IH SCH ×2 (10:48→23:04)
[2023-09-21] MEDS: ATORVASTATIN CA 40 MG TABLET (FP) PO SCH (21:34)
[2023-09-21] MEDS: MELATONIN 1 MG TABLET PO SCH (21:35)
[2023-09-22] MEDS: LEVOTHYROXINE NA 50 MCG TABLET (FP) PO SCH (05:59)
[2023-09-22] MEDS: GABAPENTIN 100 MG CAPSULE PO SCH ×3 (06:00→21:21)
[2023-09-22] MEDS ORDERED: MAGNESIUM 2GM/50ML STERILE WATER IVPB IVPB ONE ×2 (07:42→09:30)
[2023-09-22] MEDS: DEXAMETHASONE SOD PHOSPHATE 4 MG/1 ML VIAL IVPUSH SCH (09:35)
[2023-09-22] MEDS: ALLOPURINOL 100 MG TABLET (FP) PO SCH (09:37)
[2023-09-22] MEDS: FOLIC ACID 1 MG TABLET (FP) PO SCH (09:37)
[2023-09-22] MEDS: PANTOPRAZOLE 40 MG TABLET PO SCH (09:37)
[2023-09-22] MEDS: levETIRAcetam 500 MG TABLET (FP) PO SCH ×2 (09:37→21:21)
[2023-09-22] MEDS: metoPROLOL SUCCINATE 25 MG TAB.SR.24H (FP) PO SCH (09:37)
[2023-09-22] MEDS: APIXABAN 5 MG TABLET PO SCH ×2 (09:37→21:21)
[2023-09-22] MEDS: MULTIVITAMINS (DAILY MVI) TABLET (FP) PO SCH (09:37)
[2023-09-22] MEDS: DOCUSATE SODIUM 100 MG CAPSULE (FP) PO SCH ×2 (09:37→21:21)
[2023-09-22] MEDS: VALPROATE SODIUM 250 MG/5 ML UNIT DOSE CUP PO SCH ×2 (09:38→21:20)
[2023-09-22] MEDS: FLUTICASONE/SALMETEROL (WIXELA) 100 MCG/50 MCG DISKUS IH SCH ×2 (09:39→21:42)
[2023-09-22] MEDS: DICYCLOMINE HCL 10 MG CAPSULE PO SCH ×2 (09:39→21:20)
[2023-09-22] MEDS: PRAMIPEXOLE DIHYDROCHLORIDE 0.25 MG TABLET PO SCH ×2 (09:40→21:21)
[2023-09-22] MEDS: CYANOCOBALAMIN (VITAMIN B-12) 100 MCG TABLET PO SCH (09:41)
[2023-09-22 09:42] LABS: MCH 34.8 pg (25.7-33.7); MCHC 33.5 g/dl (32.0-36.0); MEAN CELL VOLUME 103.9 fl (80-96); MEAN PLT VOLUME 7.7 fl (7.5-11.1); PLATELET COUNT 197 10^3/uL (134-434); RBC 2.88 M/mm3 (3.60-5.2); WHITE BLOOD COUNT 6.7 K/mm3 (4.0-10.0)
[2023-09-22 10:10] LABS: POTASSIUM 4.3 mmol/L (3.5-5.1)
[2023-09-22 10:18] LABS: CALCIUM 8.3 mg/dL (8.5-10.1)
[2023-09-22 10:19] LABS: ALBUMIN 2.1 g/dl (3.4-5.0); BLOOD UREA NITROGEN 28.5 mg/dL (7-18); MAGNESIUM 1.7 mg/dL (1.8-2.4)
[2023-09-22 10:22] LABS: CREATININE 0.7 mg/dL (0.55-1.3); PHOSPHOROUS 3.3 mg/dL (2.5-4.9)
[2023-09-22 10:23] LABS: BILIRUBIN,TOTAL 0.3 mg/dL (0.2-1); TOT PROT 4.8 g/dl (6.4-8.2)
[2023-09-22 10:47] LABS: ANISOCYTOSIS 0; MACROCYTOSIS 1+
[2023-09-22] MEDS: MELATONIN 1 MG TABLET PO SCH (21:20)
[2023-09-22] MEDS: ATORVASTATIN CA 40 MG TABLET (FP) PO SCH (21:21)
[2023-09-23] MEDS: LEVOTHYROXINE NA 50 MCG TABLET (FP) PO SCH (06:28)
[2023-09-23] MEDS: GABAPENTIN 100 MG CAPSULE PO SCH ×3 (06:28→21:47)
[2023-09-23 07:11] LABS: HEMATOCRIT 27.8 % (32.4-45.2); HEMOGLOBIN 9.4 GM/dL (10.7-15.3); MCH 35.1 pg (25.7-33.7); MCHC 33.8 g/dl (32.0-36.0); MEAN CELL VOLUME 103.9 fl (80-96); MEAN PLT VOLUME 7.5 fl (7.5-11.1); PLATELET COUNT 189 10^3/uL (134-434); RBC 2.68 M/mm3 (3.60-5.2); WHITE BLOOD COUNT 6.1 K/mm3 (4.0-10.0)
[2023-09-23 07:32] LABS: POTASSIUM 4.7 mmol/L (3.5-5.1)
[2023-09-23 07:46] LABS: BILIRUBIN,TOTAL 0.2 mg/dL (0.2-1); BLOOD UREA NITROGEN 27.9 mg/dL (7-18); PHOSPHOROUS 3.7 mg/dL (2.5-4.9)
[2023-09-23 07:47] LABS: CALCIUM 7.8 mg/dL (8.5-10.1); TOT PROT 4.5 g/dl (6.4-8.2)
[2023-09-23 07:48] LABS: CREATININE 0.7 mg/dL (0.55-1.3); MAGNESIUM 1.9 mg/dL (1.8-2.4)
[2023-09-23 10:32] LABS: ANISOCYTOSIS 2+; MACROCYTOSIS 2+
[2023-09-23] MEDS: DEXAMETHASONE SOD PHOSPHATE 4 MG/1 ML VIAL IVPUSH SCH (11:16)
[2023-09-23] MEDS: VALPROATE SODIUM 250 MG/5 ML UNIT DOSE CUP PO SCH ×2 (11:16→21:47)
[2023-09-23] MEDS: metoPROLOL SUCCINATE 25 MG TAB.SR.24H (FP) PO SCH (11:17)
[2023-09-23] MEDS: DOCUSATE SODIUM 100 MG CAPSULE (FP) PO SCH ×2 (11:17→21:47)
[2023-09-23] MEDS: ALLOPURINOL 100 MG TABLET (FP) PO SCH (11:17)
[2023-09-23] MEDS: APIXABAN 5 MG TABLET PO SCH ×2 (11:17→21:47)
[2023-09-23] MEDS: MULTIVITAMINS (DAILY MVI) TABLET (FP) PO SCH (11:17)
[2023-09-23] MEDS: FOLIC ACID 1 MG TABLET (FP) PO SCH (11:17)
[2023-09-23] MEDS: PRAMIPEXOLE DIHYDROCHLORIDE 0.25 MG TABLET PO SCH ×2 (11:18→21:47)
[2023-09-23] MEDS: DICYCLOMINE HCL 10 MG CAPSULE PO SCH ×2 (11:18→21:47)
[2023-09-23] MEDS: levETIRAcetam 500 MG TABLET (FP) PO SCH ×2 (11:18→21:47)
[2023-09-23] MEDS: PANTOPRAZOLE 40 MG TABLET PO SCH (11:18)
[2023-09-23] MEDS: CYANOCOBALAMIN (VITAMIN B-12) 100 MCG TABLET PO SCH (11:18)
[2023-09-23] MEDS: FLUTICASONE/SALMETEROL (WIXELA) 100 MCG/50 MCG DISKUS IH SCH ×2 (11:19→21:51)
[2023-09-23] MEDS: MELATONIN 1 MG TABLET PO SCH (21:47)
[2023-09-23] MEDS: ATORVASTATIN CA 40 MG TABLET (FP) PO SCH (21:47)
[2023-09-24] MEDS: GABAPENTIN 100 MG CAPSULE PO SCH (06:34)
[2023-09-24] MEDS: LEVOTHYROXINE NA 50 MCG TABLET (FP) PO SCH (06:34)
[2023-09-24] MEDS ORDERED: DEXAMETHASONE 4 MG TABLET (FP) PO ONE (09:45)
[2023-09-24] MEDS: DOCUSATE SODIUM 100 MG CAPSULE (FP) PO SCH (11:22)
[2023-09-24] MEDS: levETIRAcetam 500 MG TABLET (FP) PO SCH (11:22)
[2023-09-24] MEDS: VALPROATE SODIUM 250 MG/5 ML UNIT DOSE CUP PO SCH (11:22)
[2023-09-24] MEDS: metoPROLOL SUCCINATE 25 MG TAB.SR.24H (FP) PO SCH (11:23)
[2023-09-24] MEDS: FOLIC ACID 1 MG TABLET (FP) PO SCH (11:23)
[2023-09-24] MEDS: APIXABAN 5 MG TABLET PO SCH (11:23)
[2023-09-24] MEDS: PANTOPRAZOLE 40 MG TABLET PO SCH (11:23)
[2023-09-24] MEDS: MULTIVITAMINS (DAILY MVI) TABLET (FP) PO SCH (11:23)
[2023-09-24] MEDS: PRAMIPEXOLE DIHYDROCHLORIDE 0.25 MG TABLET PO SCH (11:24)
[2023-09-24] MEDS: FLUTICASONE/SALMETEROL (WIXELA) 100 MCG/50 MCG DISKUS IH SCH (11:24)
[2023-09-24] MEDS: DICYCLOMINE HCL 10 MG CAPSULE PO SCH (11:25)
[2023-09-24] MEDS: CYANOCOBALAMIN (VITAMIN B-12) 100 MCG TABLET PO SCH (11:25)
[2023-09-24] MEDS: ALLOPURINOL 100 MG TABLET (FP) PO SCH (11:26)
[2023-09-24 14:21] VITALS: PULSE 72
[2023-09-24 14:40] VITALS: BP 110/71; RESP 16; TEMP 97.6
== END 2023-09-24 14:25 | DRG 871 ==
LOC: JER 11:09 → JERBED 13:37 → J4S 20:02
PROVIDERS: ADMIT Internal Medicine; ATTEND Internal Medicine
PROC: XW033E5 Introduction of Remdesivir Anti-infective into Peripheral Vein, Percutaneous Approach, New Technology Group 5 (ICD-10-PCS; principal; 2023-09-14)
DX: A41.89 Other specified sepsis (principal); G93.41 Metabolic encephalopathy; U07.1 COVID-19; I69.354 Hemiplegia and hemiparesis following cerebral infarction affecting left non-dominant side; N39.0 Urinary tract infection, site not specified; N17.9 Acute kidney failure, unspecified; G40.909 Epilepsy, unspecified, not intractable, without status epilepticus; I10 Essential (primary) hypertension; I25.10 Atherosclerotic heart disease of native coronary artery without angina pectoris; E03.9 Hypothyroidism, unspecified; D69.6 Thrombocytopenia, unspecified; J44.9 Chronic obstructive pulmonary disease, unspecified; G20.A1 Parkinson's disease without dyskinesia, without mention of fluctuations; I48.91 Unspecified atrial fibrillation; E78.5 Hyperlipidemia, unspecified; K21.9 Gastro-esophageal reflux disease without esophagitis; K59.00 Constipation, unspecified; B96.4 Proteus (mirabilis) (morganii) as the cause of diseases classified elsewhere; B96.20 Unspecified Escherichia coli [E. coli] as the cause of diseases classified elsewhere; Z85.42 Personal history of malignant neoplasm of other parts of uterus; Z85.43 Personal history of malignant neoplasm of ovary
CPT/HCPCS: 0241U-QW; 36415; 70450-TC; 71045-TC-FY; 80048; 80053; 80164; 80177; 81003; 82136; 82140; 82436; 82550; 82553; 82570; 82803; 82962; 83605; 83735; 83918; 84100; 84133; 84300; 84439; 84443; 84484; 84540; 85025; 85027; 85610; 85651; 85730; 86140; 86850; 86900; 86901; 87040; 87081; 87086; 87186; 87635; 93005; 93010; 93971; 97116-GP; 97162-GP; 99285-25; G0480; J0248